=== PATIENT | female | born 1940 | race Caucasian/White ===

== ENCOUNTER 2022-11-30 19:47 | Inpatient (IN) | payer MEDICARE ==
[2022-11-30] VITALS (8 sets, daily range): BP systolic 131–155; BP diastolic 61–104
[~2022-11-30] VITALS: Ht 167.7 cm; Wt 80.7 kg
[2022-11-30] MEDS ORDERED: ONDANSETRON 4 MG (ZOFRAN) ORAL DISSOLVE TAB PO PRN (20:00)
[2022-11-30] MEDS ORDERED: ONDANSETRON 4 MG/2 ML (SDV) Z0FRAN IV PRN (20:00)
[2022-11-30] MEDS ORDERED: MILK OF MAGNESIA 400 MG/5 ML 30 ML UDC PO PRN (20:00)
[2022-11-30] MEDS ORDERED: diphenhydrAMINE 25 MG TAB (BENADRYL) PO PRN (20:00)
[2022-11-30] MEDS ORDERED: ACETAMINOPHEN 325 MG TABLET PO PRN (20:00)
[2022-11-30] MEDS ORDERED: polyethylene glycoL POWDER 17 GM (MIRALAX) PACK PO PRN (20:00)
[2022-11-30] MEDS ORDERED: diphenhydrAMINE 50 MG/ML INJ (BENADRYL) IVP PRN (20:00)
[2022-11-30] MEDS ORDERED: ANTACID SUSP 30 ML UDC (MYLANTA) PO PRN (20:00)
[2022-11-30] MEDS ORDERED: LACTULOSE SYRUP 10GM/15ML (ENULOSE) 30ML UDC PO PRN (20:00)
[2022-11-30] MEDS ORDERED: MELATONIN 3 MG TABLET PO PRN (20:00)
[2022-11-30] MEDS ORDERED: VANCOMYCIN INJECTION 0.1 MG in NS (IVPB) 250 ML IV SCH (20:00)
[2022-11-30] MEDS ORDERED: ALPRAZolam 1 MG (XANAX) TAB PO PRN (20:00)
[2022-11-30] MEDS ORDERED: BISACODYL 10 MG SUPP (DULCOLAX) PR PRN (20:00)
[2022-11-30] MEDS ORDERED: HYDROmorphone 2 MG/ML VIAL (DILAUDID) IV PRN (20:00)
[2022-11-30] MEDS ORDERED: meTOprolol 5 MG/5 ML (LOPRESSOR) VIAL IV PRN (20:00)
[2022-11-30] MEDS ORDERED: CALCIUM CARBONATE 500 MG (TUMS) TAB.CHEW PO PRN (20:00)
--- NOTE | 2022-11-30 20:17 | History & Physical ---
History of Present Illness HPI/Chief Complaint CC: Acute respiratory failure due to pneumonia and new onset AF with volume overload HPI: This is an 82yoWF clinic patient of Dr Batista who also sees Dr Thornton Cardiology in [place], Dr Ledesma Gastroenterology in [place], and Dr Bustamante Hematology in [place] and Dr Ortega Rheumatology who presents as a transfer from [facility] for higher level of care due to worsened respiratory status and new onset AF. ECHO prelim revealed EF 51%. Patient has scleroderma and is managed by Dr Ortega but is not on any immunusuppression only takes Ultram. She has a h/o watermelon stomach and has received multiple doses of IV iron and this hospital admit she received blood transfusions. She is currently on non- rebreather mask and appears to be comfortable but appears to be very complicated with temporal wasting. at bedside. Catheter is in place and patient maintained on Vanc and Zosyn since admit Wednesday night. Source: patient, family, RN/MD, old records Date Seen 11/30/22 Time Seen by a Provider: 21:30 Attending Physician PCP Admitting Physician: Vicky Angel DO Attending Physician: Vicky Angel DO Referring Physician Date of Admission Home Medications & Allergies Home Medications Reviewed patient Home Medication Reconciliation performed by pharmacy medication reconciliations building services technician and/or nursing. Patients Allergies have been reviewed. Allergies Allergies Coded Allergies No Known Drug Allergies (Unverified11/30/22) Past Tncnvub-Zgcmcy-Dmfrrw Hx Past Med/Social Hx: Reviewed Nursing Past Med/Soc Hx, Reviewed and Corrections made Patient Social History Marrital Status: Employed/Student: retired Alcohol Use: Denies Use Smoking Status: Never a Smoker Past Medical History Cardiac: Hypertension Gastrointestinal: Gastrointestinal Bleed Musculoskeletal: Arthritis, Chronic Back Pain scleroderma History of Blood Disorders: Yes (iron deficiency) Review of Systems Constitutional: see HPI, dizziness, malaise, weakness EENTM: no symptoms reported Respiratory: dyspnea on exertion, short of breath Cardiovascular: palpitations Gastrointestinal: no symptoms reported Genitourinary: no symptoms reported Musculoskeletal: back pain, joint pain Skin: no symptoms reported Psychiatric/Neurological: Anxiety, Depressed All Other Systems Reviewed Negative Unless Noted: Yes Physical Exam Physical Exam Vital Signs Vital Signs - First Documented 11/30/22 21:20 Temp 37.0 Pulse 87 Resp 23 B/P (MAP) 139/104 (116) Pulse Ox 94 O2 Delivery Nasal Cannula O2 Flow Rate 4.00 Capillary Refill : Height, Weight, BMI Height: '" Weight: lbs. oz. kg; BMI Method: General Appearance: WD/WN, Anxious, Chronically ill, Mild Distress, Thin, Other (chronically ill) Eyes: Bilateral Eye Normal Inspection, Bilateral Eye PERRL HEENT: PERRL/EOMI, Normal ENT Inspection, Pharynx Normal Neck: Full Range of Motion, Normal Inspection, Non Tender, Supple, Carotid Bruit Respiratory: Chest Non Tender, No Respiratory Distress, Accessory Muscle Use, Crackles, Decreased Breath Sounds Cardiovascular: No Edema, No Gallop, No JVD, No Murmur, Normal Peripheral Pulses, Irregularly Irregular, Tachycardia Gastrointestinal: Normal Bowel Sounds, No Organomegaly, No Pulsatile Mass, Non Tender, Soft Back: Normal Inspection, No CVA Tenderness, No Vertebral Tenderness Extremity: Normal Capillary Refill, Normal Inspection, Normal Range of Motion, Non Tender, No Calf Tenderness, No Pedal Edema Neurologic/Psychiatric: Alert, Oriented x3, Normal Mood/Affect, senior product development scientist II-XII Norm as Tested, Motor Weakness (generalized weakness) Skin: Normal Color, Warm/Dry Lymphatic: No Adenopathy Results Results/Procedures Labs Laboratory Tests 11/30/22 22:07 Patient resulted labs reviewed. Assessment/Plan Admission Diagnosis Assessment: Acute hypoxic respiratory failure- may need Vapotherm since on simple mask at [facility] Sepsis Bilateral PNA New onset AF somewhat rate controlled HTN as outpatient Watermelon stomach managed by Dr Ledesma on PPI and [place]af[place] Severe iron deficiency anemia managed by Dr Bustamante with iron infusions Scleroderma on Ultram for pain Not an anticoagulation candidate due to GIB Protein malnutrition Third spacing of fluid due to low albumin Pleural effusions Plan: CSD Dr Gabriel/Dr Longo consult ECHO reviewed from [facility] Not an anticoagulation candidate due to GIB Check iron and B12 Admission Status: Inpatient Order (span 2 midnights) Reason for Inpatient Admission: resp failure Clinical Quality Measures DVT/VTE Risk/Contraindication: Contraindications-Pharm: Other *list below* Other: watermelon stomach with GIB VICKY ANGEL DO Nov 30, 2022 20:17
--- OUTSIDE RECORDS SUMMARY | 2022-11-30 21:25 | XMS REPORT | Clinical Summary ---
Author Author [facility] Organization [facility] Address Unknown Phone Unavailable Care Team Providers Care Account Manager Name Role Phone Unverified, Unverified Md PCP Unavailable Melony Waller MD Unavailable Source Comments Some departments are not documenting in the electronic medical record. If you d o not see the information that you expected, contact Release of Information in [facility] [employer] Information Management department at [phone] for further assistan ce in locating additional records.[facility] Allergies No known active allergies Medications End Date Status Medication Sig Dispensed Refills Start Date Active metoprolol (LOPRESSOR) 50 Take 50 mg by 0 mg tablet mouth daily. Active meloxicam(+) (MOBIC) 15 Take 15 mg by 0 mg tablet mouth daily. Active CALCIUM PO Take by 0 mouth. Active cholecalciferol (Vitamin Take 1,000 0 D3) (VITAMIN D-3) 1,000 Units by unit Tab tablet mouth daily. Active Problems Problem Noted Date Thickened endometrium 01/28/2012 HTN (hypertension) 01/28/2012 Arthritis 01/28/2012 Overview: Of knees Bulging lumbar disc 01/28/2012 Kidney stones 01/28/2012 Osteopenia 01/28/2012 Urgency incontinence 01/28/2012 Social History Date Tobacco Use Types Packs/Day Years Used Smoking Tobacco: Never Assessed Sex Assigned at Date Recorded Not on file Last Filed Vital Signs Reading Time Taken Comments Vital Sign 145/71 01/28/2012 12:33 PM CDT Blood Pressure 58 01/28/2012 12:33 PM CDT Pulse 36.9 C (98.4 F) 01/28/2012 12:33 PM CDT Temperature - - Respiratory Rate - - Oxygen Saturation - - Inhaled Oxygen Concentration 105.1 kg (231 lb 9.6 oz) 01/28/2012 12:33 PM CDT Weight 166.4 cm (5' 5.5") 01/28/2012 12:33 PM CDT Height 37.95 01/28/2012 12:33 PM CDT Body Mass Index Plan of Treatment Health Maintenance Due Date Last Done Comments COVID-19 VACCINE (#1) 05/06/1941 DTAP/TDAP VACCINES (1 - 1960 Tdap) PHYSICAL (COMPREHENSIVE) 1960 EXAM SHINGLES RECOMBINANT 1992 VACCINE (1 of 2) OSTEOPOROSIS 2007 SCREENING/MONITORING PNEUMOCOCCAL VACCINE (1 - 2007 PCV) INFLUENZA VACCINE (#1) 2022 DEPRESSION SCREENING 10/04/2022 Results Not on filefrom Last 3 Months Care Teams Start Date End Date Account Manager Relationship Specialty 01/27/12 Unverified, Unverified, PCP - General 02/01/12 Melony Waller MD Obstetrics & [id number] Gynecology [facility] [address] [place] [address]
--- NOTE | 2022-11-30 21:49 | Diagnostic Imaging Report ---
EXAM: CHEST 1 VIEW, AP/PA ONLY INDICATION: Pneumonia. COMPARISON: None. FINDINGS: Cardiomegaly with diffuse interstitial prominence. Bibasilar consolidation. Small to moderate bilateral pleural effusions. No pneumothorax. Right IJ CVC tip is obscured by underpenetration. This is likely in the region of the RA/SVC junction. IMPRESSION: Cardiomegaly with diffuse interstitial and airspace opacities, greatest in the lung bases, suspicious for pulmonary edema. Infectious process cannot be excluded. Bilateral [id number] pleural effusions. Dictated by: Dictated on workstation # [id number]
[2022-11-30 22:29] LABS: BASOPHILS # (AUTO) 0.1 10^3/uL (0.0-0.1); BASOPHILS % (AUTO) 0 % (0-10); EOSINOPHILS # (AUTO) 0.1 10^3/uL (0.0-0.3); EOSINOPHILS % (AUTO) 0 % (0-10); HEMATOCRIT 27 % (35-52); HEMOGLOBIN 8.3 g/dL (11.5-16.0); LYMPHOCYTES # (AUTO) 1.2 10^3/uL (1.0-4.0); LYMPHOCYTES % (AUTO) 6 % (12-44); MEAN CORPUSCULAR HEMOGLOBIN 27 pg (25-34); MEAN CORPUSCULAR HGB CONC 31 g/dL (32-36); MEAN CORPUSCULAR VOLUME 86 fL (80-99); MEAN PLATELET VOLUME 10.1 fL (9.0-12.2); MONOCYTES # (AUTO) 0.9 10^3/uL (0.0-1.0); MONOCYTES % (AUTO) 4 % (0-12); NEUTROPHILS # (AUTO) 17.6 10^3/uL (1.8-7.8); NEUTROPHILS % (AUTO) 81 % (42-75); PLATELET COUNT 405 10^3/uL (130-400); WHITE BLOOD COUNT 21.7 10^3/uL (4.3-11.0)
[2022-11-30] MEDS ORDERED: RT-ALBUTEROL SULF 2.5 MG/3 ML PRE-MIX VIAL INH PRN (22:30)
[2022-11-30 22:41] LABS: ALBUMIN 2.4 GM/DL (3.2-4.5); POTASSIUM 3.7 MMOL/L (3.6-5.0)
[2022-11-30 22:43] LABS: TOTAL PROTEIN 6.2 GM/DL (6.4-8.2)
[2022-11-30 22:45] LABS: BILIRUBIN,TOTAL 0.4 MG/DL (0.1-1.0)
[2022-11-30 22:47] LABS: CREATININE SERUM 0.78 MG/DL (0.60-1.30)
[2022-11-30] MEDS: SENNOSIDES 8.6 MG (SENOKOT) TAB PO SCH (22:56)
[2022-11-30] MEDS: PANTOPRAZOLE 40 MG (PROTONIX) TAB PO SCH (22:57)
[2022-11-30] MEDS: DOCUSATE SODIUM 100 MG (COLACE) CAP PO SCH (22:57)
[2022-11-30] MEDS: GABAPENTIN 300 MG (NEURONTIN) CAP PO SCH (22:57)
[2022-11-30] MEDS: PIPERACILLIN SODIUM/TAZOBACTAM 4.5 GM in NS (IVPB) 100 ML IV SCH (22:57)
[2022-11-30] MEDS: SUCRALFATE 1 GM (CARAFATE) TAB PO SCH (22:57)
[2022-11-30 23:22] LABS: ABG BASE EXCESS 3.1 MMOL/L (-2.5-2.5); ABG OXYGEN SATURATION 89 % (94-100); ABG PCO2 46 MMHG (35-45); ABG PH 7.39 (7.37-7.43); ABG PO2 56 MMHG (79-93)
[2022-11-30 23:24] LABS: ALLENS TEST YES-POS; INSPIRED O2 4; PATIENT TEMP 37; VENTILATOR NO
[2022-12-01] VITALS: BP 134/63
[2022-12-01] MEDS: VANCOMYCIN 1 GM/NS 250 ML IVPB IV SCH ×4 (00:36→12:25)
[2022-12-01] MEDS: RT-ALBUTEROL SULF 2.5 MG/3 ML PRE-MIX VIAL INH SCH ×4 (02:32→21:33)
[2022-12-01 04:00] VITALS: BP 137/67
[2022-12-01 05:14] LABS: BASOPHILS # (AUTO) 0.1 10^3/uL (0.0-0.1); BASOPHILS % (AUTO) 0 % (0-10); EOSINOPHILS # (AUTO) 0.1 10^3/uL (0.0-0.3); EOSINOPHILS % (AUTO) 0 % (0-10); HEMATOCRIT 26 % (35-52); HEMOGLOBIN 8.2 g/dL (11.5-16.0); LYMPHOCYTES # (AUTO) 1.4 10^3/uL (1.0-4.0); LYMPHOCYTES % (AUTO) 7 % (12-44); MEAN CORPUSCULAR HEMOGLOBIN 27 pg (25-34); MEAN CORPUSCULAR HGB CONC 31 g/dL (32-36); MEAN CORPUSCULAR VOLUME 87 fL (80-99); MEAN PLATELET VOLUME 10.2 fL (9.0-12.2); MONOCYTES % (AUTO) 5 % (0-12); NEUTROPHILS # (AUTO) 15.5 10^3/uL (1.8-7.8); NEUTROPHILS % (AUTO) 78 % (42-75); PLATELET COUNT 387 10^3/uL (130-400); WHITE BLOOD COUNT 19.8 10^3/uL (4.3-11.0)
[2022-12-01 05:27] LABS: ALBUMIN 2.3 GM/DL (3.2-4.5); BILIRUBIN,TOTAL 0.5 MG/DL (0.1-1.0); CALCIUM 8.3 MG/DL (8.5-10.1); CREATININE SERUM 0.73 MG/DL (0.60-1.30); POTASSIUM 3.7 MMOL/L (3.6-5.0); TOTAL PROTEIN 6.1 GM/DL (6.4-8.2)
[2022-12-01] MEDS: CYANOCOBALAMIN 1,000 MCG (VITAMIN B-12) TABLET PO SCH (06:11)
[2022-12-01] MEDS: PIPERACILLIN SODIUM/TAZOBACTAM 4.5 GM in NS (IVPB) 100 ML IV SCH ×3 (06:11→22:50)
[2022-12-01] MEDS: SUCRALFATE 1 GM (CARAFATE) TAB PO SCH ×4 (06:11→21:00)
[2022-12-01 08:00] VITALS: BP 123/57
--- NOTE | 2022-12-01 08:34 | Consultation-Cardiology ---
HPI-Cardiology Cardiology Consultation: Date of Consultation 12/01/22 Time Seen by a Provider: 09:45 Date of Admission 11-30-22 Attending Physician Zoila Batista MD Admitting Physician Admitting Physician: Vicky Angel DO Attending Physician: Vicky Angel DO Consulting Physician Dewayne Gabriel MD HPI: Chief Complaint: Newly dx PAF Ms. Woodard is an 82 yr old female admitted to [facility] from the [facility] with new onset a-fib. While at [facility] she was started on a Cardizem gtt and Heparin. Her resp status continued to decline and she was subsequently transferred to [facility]. She reports she has had increasing weakness over the course of the last several days. She reports increasing SOB over the last several days as well. She denies any c/o CP, palpitations, syncope or near syncope. She reports dizziness with ambulation. She reports increasing LE swelling over the last several days. She reports freq cough with thick phlegm. She reports occ episodes of sharp, stabbing anterior chest pain that lasts for only seconds. She states her primary store receiving specialist is Dr. Tomlin at [facility]. She feels her SOB is somewhat better, but still SOB. She denies any n/v/d. She denies any fever or chills. Review of Systems-Cardiology Review of Systems Constitutional: As described under HPI Eyes: No vision change Ears/Nose/Throat: No epistaxis Respiratory: As described under HPI Cardiovascular: As described under HPI Gastrointestinal: As described under HPI Genitourinary: No dysuria, No hematuria Musculoskeletal: no symptoms reported Skin: No rash on exposed areas, No ulcerations on exposed areas Psychiatric/Neurological: No anxiety, No depression, No seizure, No focal weakness, No syncope Hematologic: No bleeding abnormalities All Other Systems Reviewed Negative Unless Noted: Yes JEX-Hgmjmt-Mfajgf Hx Patient Social History Marrital Status: Employed/Student: retired Smoking Status: Never a Smoker Have you traveled recently?: No Alcohol Use?: No Pt feels they are or have been: No Past Medical History PMH As described under Assessment. Family Medical History Family Medical History: She reports she had a brother who passed d/t CAD. Allergies and Home Medications Allergies Coded Allergies: No Known Drug Allergies (Unverified , 11/30/22) Patient Home Medication List Amlodipine Besylate (Amlodipine Besylate) 5 Mg Tablet, 5 MG PO DAILY, (Reported) Entered as Reported by: SLOANE MARTELL on 12/01/221005 Last Action: Reviewed Calcium Carbonate/Vitamin D3 (Calcium + Vitamin D Tablet) 600 Mg Calcium-5 Mcg (200 Unit) Tablet, 1 EACH PO DAILY, (Reported) Entered as Reported by: SLOANE MARTELL on 12/01/221005 Last Action: Reviewed Cyanocobalamin (Vitamin B-12) (Vitamin B-12) 500 Mcg Tablet, 500 MCG PO DAILY, (Reported) Entered as Reported by: SLOANE MARTELL on 12/01/221005 Last Action: Reviewed Fish Oil/Dha/Epa (Fish Oil 1,200 mg Fish Oil) 1,200 Mg-144 Mg-216 Mg Capsule, 1 EACH PO DAILY, (Reported) Entered as Reported by: SLOANE MARTELL on 12/01/221005 Last Action: Reviewed Folic Acid (Folic Acid) 1 Mg Tablet, 1 MG PO DAILY, (Reported) Entered as Reported by: SLOANE MARTELL on 12/01/221005 Last Action: Reviewed Gabapentin (Neurontin) 300 Mg Capsule, 300 MG PO HS, (Reported) Entered as Reported by: SLOANE MARTELL on 12/01/221005 Last Action: Reviewed Metoprolol Succinate (Metoprolol Succinate) 50 Mg Tab.er.24h, 50 MG PO DAILY, (Reported) Entered as Reported by: SLOANE MARTELL on 12/01/221005 Last Action: Reviewed Pantoprazole Sodium (Pantoprazole Sodium) 40 Mg Tablet.dr, 40 MG PO DAILY, (Reported) Entered as Reported by: SLOANE MARTELL on 12/01/221005 Last Action: Reviewed Sucralfate (Sucralfate) 1 Gram Tablet, 1 GM PO BIDAC, (Reported) Entered as Reported by: SLOANE MARTELL on 12/01/221005 Last Action: Reviewed Tramadol HCl (Tramadol HCl) 50 Mg Tablet, 50-100 MG PO Q6H PRN for PAIN-MODERATE (5-7), (Reported) Entered as Reported by: SLOANE MARTELL on 12/01/221005 Last Action: Reviewed Physical Exam-Cardiology Physical Exam Vital Signs/I&O 12/01/22 12/01/22 12/01/22 12/01/22 07:29 07:42 08:00 08:26 Pulse 77 105 141 Resp 19 B/P (MAP) 123/57 (79) Pulse Ox 96 95 O2 Delivery Nasal Cannula Nasal Cannula O2 Flow Rate 4.00 4.00 12/01/22 12/01/22 12/01/22 12/01/22 10:25 12:30 12:51 13:00 Pulse 113 113 93 105 Resp B/P (MAP) 160/66 (97) 166/87 (113) Pulse Ox 96 95 O2 Delivery Nasal Cannula Nasal Cannula O2 Flow Rate 4.00 4.00 12/01/22 12/01/22 12/01/22 12/01/22 13:15 13:30 13:45 14:00 Pulse 117 106 105 123 Resp 32 B/P (MAP) 165/78 (107) 135/71 (92) 153/72 (99) 146/62 (90) Pulse Ox 97 96 95 90 O2 Delivery Nasal Cannula Nasal Cannula Nasal Cannula Nasal Cannula O2 Flow Rate 4.00 4.00 4.00 4.00 12/01/22 12/01/22 14:38 15:00 Pulse 123 Resp 20 B/P (MAP) 158/89 (112) Pulse Ox 97 96 O2 Delivery Nasal Cannula Nasal Cannula O2 Flow Rate 4.00 4.00 12/01/22 00:00 Intake Total 0 ml Output Total 150 ml Balance -150 ml Capillary Refill : Less Than 3 Seconds Constitutional: AAO x 3, well-developed, well-nourished HEENT: PERRL, hearing is well preserved, oral hygience is good Neck: No carotid bruit; carotid pulses are 2 + bilaterally Respiratory: No accessory muscle use, No respiratory distress; chest expansion is symmetric, chest is bilaterally symmetric, other (dyspneic with conversation; coarse breath sounds) Cardiovascular: irregularly irregular; No JVD; S1 and S2 Gastrointestinal: No tender; soft; No guarding; audible bowel sounds Extremities: other (mod bilat LE swelling) Neurologic/Psychiatric: grossly intact (moves all extremities - gen weakness) Skin: No rash on exposed areas, No ulcerations on exposed areas Data Review Labs Laboratory Tests 11/30/22 22:07: White Blood Count 21.7H, Red Blood Count 3.12L, Hemoglobin 8.3L, Hematocrit 27L, Mean Corpuscular Volume 86, Mean Corpuscular Hemoglobin 27, Mean Corpuscular Hemoglobin Concent 31L, Red Cell Distribution Width 23.8H, Platelet Count 405H, Mean Platelet Volume 10.1, Immature Granulocyte % (Auto) 9, Neutrophils (%) (Auto) 81H, Lymphocytes (%) (Auto) 6L, Monocytes (%) (Auto) 4, Eosinophils (%) (Auto) 0, Basophils (%) (Auto) 0, Neutrophils # (Auto) 17.6H, Lymphocytes # (Auto) 1.2, Monocytes # (Auto) 0.9, Eosinophils # (Auto) 0.1, Basophils # (Auto) 0.1, Immature Granulocyte # (Auto) 1.9H, Sodium Level 137, Potassium Level 3.7, Chloride Level 103, Carbon Dioxide Level 23, Anion Gap 11, Blood Urea Nitrogen 22H, Creatinine 0.78, Estimat Glomerular Filtration Rate 77, BUN/Creatinine Ratio 28, Glucose Level 134H, Lactic Acid Level 0.91, Calcium Level 8.0L, Cor rected Calcium 9.3, Total Bilirubin 0.4, Aspartate Amino Transf (AST/SGOT) 32, Alanine Aminotransferase (ALT/SGPT) 32, Alkaline Phosphatase 82, Total Protein 6.2L, Albumin 2.4L 11/30/22 23:15: Blood Gas Puncture Site RT RADIAL, Blood Gas Patient Temperature 37, Arterial Blood pH 7.39, Arterial Blood Partial Pressure CO2 46H, Arterial Blood Partial Pressure O2 56L, Arterial Blood HCO3 28H, Arterial Blood Total CO2 29.0, Arterial Blood Oxygen Saturation 89L, Arterial Blood Base Excess 3.1H, Delfino Test YES-POS, Blood Gas Ventilator Setting NO, Blood Gas Inspired Oxygen 4 12/01/22 05:00: White Blood Count 19.8H, Red Blood Count 3.03L, Hemoglobin 8.2L, Hematocrit 26L, Mean Corpuscular Volume 87, Mean Corpuscular Hemoglobin 27, Mean Corpuscular Hemoglobin Concent 31L, Red Cell Distribution Width 23.9H, Platelet Count 387, Mean Platelet Volume 10.2, Immature Granulocyte % (Auto) 9, Neutrophils (%) (Auto) 78H, Lymphocytes (%) (Auto) 7L, Monocytes (%) (Auto) 5, Eosinophils (%) (Auto) 0, Basophils (%) (Auto) 0, Neutrophils # (Auto) 15.5H, Lymphocytes # (Auto) 1.4, Monocytes # (Auto) 1.0, Eosinophils # (Auto) 0.1, Basophils # (Auto) 0.1, Immature Granulocyte # (Auto) 1.8H, Sodium Level 140, Potassium Level 3.7, Chloride Level 106, Carbon Dioxide Level 24, Anion Gap 10, Blood Urea Nitrogen 18, Creatinine 0.73, Estimat Glomerular Filtration Rate 83, BUN/Creatinine Ratio 25, Glucose Level 116H, Calcium Level 8.3L, Corrected Calcium 9.7, Total Bilirubin 0.5, Aspartate Amino Transf (AST/SGOT) 28, Alanine Aminotransferase (ALT/SGPT) 29, Alkaline Phosphatase 74, Total Protein 6.1L, Albumin 2.3L 12/01/22 10:43: Blood Gas Puncture Site R RADIAL, Blood Gas Patient Temperature 37.0, Arterial Blood pH 7.40, Arterial Blood Partial Pressure CO2 46H, Arterial Blood Partial Pressure O2 84, Arterial Blood HCO3 28H, Arterial Blood Total CO2 29.0, Arterial Blood Oxygen Saturation 98, Arterial Blood Base Excess 3.2H, Delfino Test YES-POS, Blood Gas Ventilator Setting NO, Blood Gas Inspired Oxygen 4 Radiology NAME: HUEY WOODARD [facility] REC#: [id number] PT STATUS: ADM IN : 1940 PHYSICIAN: VICKY ANGEL DO ADMIT DATE: 11/30/22/[facility] Signed Date of Exam:11/30/22 CHEST 1 VIEW, AP/PA ONLY EXAM: CHEST 1 VIEW, AP/PA ONLY INDICATION: Pneumonia. COMPARISON: None. FINDINGS: Cardiomegaly with diffuse interstitial prominence. Bibasilar consolidation. Small to moderate bilateral pleural effusions. No pneumothorax. Right IJ CVC tip is obscured by underpenetration. This is likely in the region of the RA/SVC junction. IMPRESSION: Cardiomegaly with diffuse interstitial and airspace opacities, greatest in the lung bases, suspicious for pulmonary edema. Infectious process cannot be excluded. Bilateral [id number]-ai-[id number] pleural effusions. Dictated by: Dictated on workstation # [id number] Dict: [id number]/30/[id number] Trans: 11/30/22 [facility] [id number] Interpreted by: ALISON AGEE MD Electronically signed by: ALISON AGEE MD 11/30/22 [id number] A/P-Cardiology Assessment/Admission Diagnosis Newly dx PAF - first dx at [facility] ED on 11-30-22 Progressive dyspnea - likely d/t prob pneumonia and new onset CHF Pneumonia - management per medical services CHF HTN HLD H/O GIB - GAVES syndrome - follows with Dr Ledesma of GI services in [place], [place] - cauterization approx 1 yr ago and again in June 2022 H/O scleroderma - follows with rheumatology in [place], [place] Discussion and Recomendations Newly dx PAF on 11-30-22 at [facility] - rate controlled when in [place] - when she converts to a-fib HR is not well controlled - start Cardizem for rate control Complex management issue - we advise full OAC for stroke prophylaxis, however she has a h/o recurrent GIB's; we will leave the decision to Dr. Angel who is the hospitalist providing her care New onset CHF - echocardiogram to eval structure and function - treat with diuretics Management of pneumonia per medical services Monitor lab closely Further recs will be based on her hospital course We would like to thank medical services for this consult Clinical Quality Measures DVT/VTE Risk/Contraindication: Contraindications-Pharm: Other *list below* Other: watermelon stomach with GIB DENIZ ENGLAND Dec 01, 2022 08:34
[2022-12-01] MEDS: DOCUSATE SODIUM 100 MG (COLACE) CAP PO SCH ×2 (08:46→20:19)
[2022-12-01] MEDS: PANTOPRAZOLE 40 MG (PROTONIX) TAB PO SCH ×2 (08:46→21:00)
[2022-12-01] MEDS: FOLIC ACID 1 MG TAB PO SCH (08:46)
[2022-12-01] MEDS: SENNOSIDES 8.6 MG (SENOKOT) TAB PO SCH ×2 (08:46→20:20)
[2022-12-01] MEDS ORDERED: APIXABAN 5 MG (ELIQUIS) TABLET PO NR (10:00)
[2022-12-01] MEDS ORDERED: LACTULOSE SYRUP 10GM/15ML (ENULOSE) 30ML UDC PO NR (10:00)
[2022-12-01] MEDS ORDERED: SENNA W/DOCUSATE (SENOKOT S) TABLET PO NR (10:00)
[2022-12-01] MEDS ORDERED: TRAM50TA3 PO (10:06)
[2022-12-01] MEDS ORDERED: SUCR1TAB PO (10:06)
[2022-12-01] MEDS ORDERED: FOLI1TAB33 PO (10:06)
[2022-12-01] MEDS ORDERED: FISH1CAP15 PO (10:06)
[2022-12-01] MEDS ORDERED: METO50TA7 PO (10:06)
[2022-12-01] MEDS ORDERED: AMLO-250 PO (10:06)
[2022-12-01] MEDS ORDERED: CYAN500T8 PO (10:06)
[2022-12-01] MEDS ORDERED: GABA300C PO (10:06)
[2022-12-01] MEDS ORDERED: CALC-140 PO (10:06)
[2022-12-01] MEDS ORDERED: PANT40TA52 PO (10:06)
--- NOTE | 2022-12-01 10:25 | Progress Note ---
MIKKI LAN 12/01/22 1025: Subjective Date Seen by a Provider: Dec 01, 2022 Time Seen by a Provider: 09:00 Subjective/Events-last exam Patient seen at bedside this morning. She reports improved work of breathing overnight and this morning. She reports she ate and drank very little since arrival. She has had no BMs since Wednesday. She reports no pain/discomfort. Focused Exam Lactate Level 11/30/22 22:07: Lactic Acid Level 0.91 Objective Exam Last Set of Vital Signs Vital Signs Date Time Temp Pulse Resp B/P (MAP) Pulse Ox O2 Delivery O2 Flow Rate FiO2 12/01/22 08:26 141 12/01/22 08:00 19 123/57 (79) 95 Nasal Cannula 4.00 12/01/22 03:57 37.0 Capillary Refill : Less Than 3 Seconds I&O Intake and Output 12/01/22 00:00 Intake Total 0 ml Output Total 150 ml Balance -150 ml Intake Oral 0 ml Output Urine Total 150 ml Daily Weight Change No General: Alert, Oriented X3, No Acute Distress HEENT: Atraumatic, PERRLA Heart: No Murmurs Abdomen: Other (Tachycardic, irregularly irregular rhythm ) Extremities: No Edema, Normal Pulses Skin: No Significant Lesion Neuro: Normal Speech Psych/Mental Status: Mental Status NL, Mood NL Results Lab Laboratory Tests 11/30/22 22:07: White Blood Count 21.7H, Red Blood Count 3.12L, Hemoglobin 8.3L, Hematocrit 27L, Mean Corpuscular Volume 86, Mean Corpuscular Hemoglobin 27, Mean Corpuscular Hemoglobin Concent 31L, Red Cell Distribution Width 23.8H, Platelet Count 405H, Mean Platelet Volume 10.1, Immature Granulocyte % (Auto) 9, Neutrophils (%) (Auto) 81H, Lymphocytes (%) (Auto) 6L, Monocytes (%) (Auto) 4, Eosinophils (%) (Auto) 0, Basophils (%) (Auto) 0, Neutrophils # (Auto) 17.6H, Lymphocytes # (Auto) 1.2, Monocytes # (Auto) 0.9, Eosinophils # (Auto) 0.1, Basophils # (Auto) 0.1, Immature Granulocyte # (Auto) 1.9H, Sodium Level 137, Potassium Level 3.7, Chloride Level 103, Carbon Dioxide Level 23, Anion Gap 11, Blood Urea Nitrogen 22H, Creatinine 0.78, Estimat Glomerular Filtration Rate 77, BUN/Creatinine Ratio 28, Glucose Level 134H, Lactic Acid Level 0.91, Calcium Level 8.0L, Corrected Calcium 9.3, Total Bilirubin 0.4, Aspartate Amino Transf (AST/SGOT) 32, Alanine Aminotransferase (ALT/SGPT) 32, Alkaline Phosphatase 82, Total Protein 6.2L, Albumin 2.4L 11/30/22 23:15: Blood Gas Puncture Site RT RADIAL, Blood Gas Patient Temperature 37, Arterial Blood pH 7.39, Arterial Blood Partial Pressure CO2 46H, Arterial Blood Partial Pressure O2 56L, Arterial Blood HCO3 28H, Arterial Blood Total CO2 29.0, Arterial Blood Oxygen Saturation 89L, Arterial Blood Base Excess 3.1H, Delfino Test YES-POS, Blood Gas Ventilator Setting NO, Blood Gas Inspired Oxygen 4 12/01/22 05:00: White Blood Count 19.8H, Red Blood Count 3.03L, Hemoglobin 8.2L, Hematocrit 26L, Mean Corpuscular Volume 87, Mean Corpuscular Hemoglobin 27, Mean Corpuscular Hemoglobin Concent 31L, Red Cell Distribution Width 23.9H, Platelet Count 387, Mean Platelet Volume 10.2, Immature Granulocyte % (Auto) 9, Neutrophils (%) (Auto) 78H, Lymphocytes (%) (Auto) 7L, Monocytes (%) (Auto) 5, Eosinophils (%) (Auto) 0, Basophils (%) (Auto) 0, Neutrophils # (Auto) 15.5H, Lymphocytes # (Auto) 1.4, Monocytes # (Auto) 1.0, Eosinophils # (Auto) 0.1, Basophils # (Auto) 0.1, Immature Granulocyte # (Auto) 1.8H, Sodium Level 140, Potassium Level 3.7, Chloride Level 106, Carbon Dioxide Level 24, Anion Gap 10, Blood Urea Nitrogen 18, Creatinine 0.73, Estimat Glomerular Filtration Rate 83, BUN/Creatinine Ratio 25, Glucose Level 116H, Calcium Level 8.3L, Corrected Calcium 9.7, Total Bilirubin 0.5, Aspartate Amino Transf (AST/SGOT) 28, Alanine Aminotransferase (ALT/SGPT) 29, Alkaline Phosphatase 74, Total Protein 6.1L, Albumin 2.3L Radiology NAME: HUEY WOODARD [facility] REC#: [id number] PT STATUS: ADM IN : 1940 PHYSICIAN: VICKY ANGEL DO ADMIT DATE: 11/30/22/[facility] Signed Date of Exam:11/30/22 CHEST 1 VIEW, AP/PA ONLY EXAM: CHEST 1 VIEW, AP/PA ONLY INDICATION: Pneumonia. COMPARISON: None. FINDINGS: Cardiomegaly with diffuse interstitial prominence. Bibasilar consolidation. Small to moderate bilateral pleural effusions. No pneumothorax. Right IJ CVC tip is obscured by underpenetration. This is likely in the region of the RA/SVC junction. IMPRESSION: Cardiomegaly with diffuse interstitial and airspace opacities, greatest in the lung bases, suspicious for pulmonary edema. Infectious process cannot be excluded. Bilateral [id number] pleural effusions. 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 - On Vancomycin q12 hr and Zosyn q8hr; Vancomycin trough with pharmacy - CXR on 11/30 with bilateral infiltrates, edema, and small pleural effusions; repeat appears marginally improved (final read pending) - Incentive spirometry at bedside; Albuterol PRN - WBC 21.7 -> 19.8 (12/01) - ABG on admission 7.39/46/56/28 - Vital signs stable 2) New onset A-Fib with intermittent RVR - Consult to Cardiology, appreciate recommendations (pending) - Metoprolol q4hr for HR >100; one dose needed this AM. - Previous echo with EF of 51% - Vital signs stable. 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 3) FEN/GI - No fluids at this time - Will initiate ICU electrolyte protocol - Regular Diet; encouraged intake - Senna/docusate/lactulose/PEG for bowel regimen, Zofran PRN, Protonix and sucralfate - Urine output 0.16 ml/kg/hr (patel in place) Clinical Quality Measures DVT/VTE Risk/Contraindication: Contraindications-Pharm: Other *list below* Other: watermelon stomach with GIB VICKY ANGEL DO 12/02/22 0438: Subjective Subjective/Events-last exam Moving to ICU AF RVR may need Cardizem drip Cardiology consulted Objective Exam General: Alert, Oriented X3, Cooperative, No Acute Distress, Other (frail) Lungs: Other (crackles) Heart: Regular Rate Psych/Mental Status: Mental Status NL Assessment/Plan Assessment/Plan Assess & Plan/Chief Complaint Not an anticoagulation candidate due to watermelon stomach and recent transfusions required along with iron infusions since risk of bleeding outweighs CVA prophylaxis Supervisory-Addendum Brief Verification & Attestation Participated in pt care: history, MDM, physical Personally performed: exam, history, MDM, supervision of care Care discussed with: Medical Student Procedures: n/a Results interpretation: Verified all documentation Verification and Attestation of Medical Student E/M Service A medical student performed and documented this service in my presence. I reviewed and verified all information documented by the medical student and made modifications to such information, when appropriate. I personally performed the physical exam and medical decision making. Vicky Angel Dec 02, 2022,04:36 MIKKI LAN Dec 01, 2022 10:25 VICKY ANGEL DO Dec 02, 2022 04:38
[2022-12-01] MEDS ORDERED: NS IV 500 ML 500 ML IV PRN ×2 (10:30)
[2022-12-01 10:51] LABS: ABG BASE EXCESS 3.2 MMOL/L (-2.5-2.5); ABG OXYGEN SATURATION 98 % (94-100); ABG PCO2 46 MMHG (35-45); ABG PO2 84 MMHG (79-93)
[2022-12-01 10:53] LABS: ALLENS TEST YES-POS; INSPIRED O2 4; VENTILATOR NO
--- NOTE | 2022-12-01 10:54 | Diagnostic Imaging Report ---
INDICATION: CHF. Frontal chest obtained at 9:16 a.m. and compared to yesterday. Cardiomegaly is again noted. There is unchanged central vascular congestion with interstitial edema and bibasilar infiltrates. The right IJ catheter is unchanged. IMPRESSION: Unchanged cardiomegaly with central vascular congestion and edema and unchanged bilateral infiltrates. Dictated by: Dictated on workstation # [id number]
[2022-12-01] MEDS ORDERED: FUROSEMIDE 40 MG/4 ML INJ (LASIX) IVP NR (11:00)
--- NOTE | 2022-12-01 13:42 | Consultation-Cardiology ---
HPI-Cardiology Cardiology Consultation: Date of Consultation 12/01/22 Time Seen by a Provider: 11:00 Date of Admission Attending Physician Zoila Batista MD Admitting Physician Admitting Physician: Vicky Cesar DO Attending Physician: Vicky Cesar DO Consulting Physician MANJU CAMPO MD, MA, FACP, FACC, [facility], CCDS Physician requesting consult: Dr Cesar HPI: Chief Complaint: Reason for Card consult: Newly dx PAF Ms. Desouza is an 82 yr old female admitted to [facility] from the [facility] ED with new onset a-fib. While at [facility] she was started on a Cardizem gtt and Heparin. Her resp st atus continued to decline and she was subsequently transferred to [facility]. She reports she has had increasing weakness over the course of the last several days. She reports increasing SOB over the last several days as well. She denies any c/o CP, palpitations, syncope or near syncope. She reports dizziness with ambulation. She reports increasing LE swelling over the last several days. She reports freq cough with thick phlegm. She reports occ episodes of sharp, stabbing anterior chest pain that lasts for only seconds. She states her primary bell hole digger is Dr. Tomlin at [facility]. She feels her SOB is somewhat better, but still SOB. She denies any n/v/d. She denies any fever or chills. Review of Systems-Cardiology Review of Systems Constitutional: As described under HPI Eyes: No vision change Ears/Nose/Throat: No epistaxis Respiratory: As described under HPI Cardiovascular: As described under HPI Gastrointestinal: As described under HPI Genitourinary: No dysuria, No hematuria Musculoskeletal: no symptoms reported Skin: No rash on exposed areas, No ulcerations on exposed areas Psychiatric/Neurological: No anxiety, No depression, No seizure, No focal weakness, No syncope Hematologic: No bleeding abnormalities All Other Systems Reviewed Negative Unless Noted: Yes [id number] Hx Patient Social History Marrital Status: Employed/Student: retired Smoking Status: Never a Smoker Have you traveled recently?: No Alcohol Use?: No Pt feels they are or have been: No Past Medical History PMH As described under Assessment. Family Medical History Family Medical History: She reports she had a brother who passed d/t CAD. Allergies and Home Medications Allergies Coded Allergies: No Known Drug Allergies (Unverified , 11/30/22) Patient Home Medication List Home Medication List Reviewed: Yes Amlodipine Besylate (Amlodipine Besylate) 5 Mg Tablet, 5 MG PO DAILY, (Reported) Entered as Reported by: SLOANE MARTELL on 12/01/221005 Last Action: Reviewed Calcium Carbonate/Vitamin D3 (Calcium + Vitamin D Tablet) 600 Mg Calcium-5 Mcg (200 Unit) Tablet, 1 EACH PO DAILY, (Reported) Entered as Reported by: SLOANE MARTELL on 12/01/221005 Last Action: Reviewed Cyanocobalamin (Vitamin B-12) (Vitamin B-12) 500 Mcg Tablet, 500 MCG PO DAILY, (Reported) Entered as Reported by: SLOANE MARTELL on 12/01/221005 Last Action: Reviewed Fish Oil/Dha/Epa (Fish Oil 1,200 mg Fish Oil) 1,200 Mg-144 Mg-216 Mg Capsule, 1 EACH PO DAILY, (Reported) Entered as Reported by: SLOANE MARTELL on 12/01/221005 Last Action: Reviewed Folic Acid (Folic Acid) 1 Mg Tablet, 1 MG PO DAILY, (Reported) Entered as Reported by: SLOANE MARTELL on 12/01/221005 Last Action: Reviewed Gabapentin (Neurontin) 300 Mg Capsule, 300 MG PO HS, (Reported) Entered as Reported by: SLOANE MARTELL on 12/01/221005 Last Action: Reviewed Metoprolol Succinate (Metoprolol Succinate) 50 Mg Tab.er.24h, 50 MG PO DAILY, (Reported) Entered as Reported by: SLOANE MARTELL on 12/01/221005 Last Action: Reviewed Pantoprazole Sodium (Pantoprazole Sodium) 40 Mg Tablet.dr, 40 MG PO DAILY, (Reported) Entered as Reported by: SLOANE MARTELL on 12/01/221005 Last Action: Reviewed Sucralfate (Sucralfate) 1 Gram Tablet, 1 GM PO BIDAC, (Reported) Entered as Reported by: SLOANE MARTELL on 12/01/221005 Last Action: Reviewed Tramadol HCl (Tramadol HCl) 50 Mg Tablet, 50-100 MG PO Q6H PRN for PAIN-MODERATE (5-7), (Reported) Entered as Reported by: SLOANE MARTELL on 12/01/221005 Last Action: Reviewed Physical Exam-Cardiology Physical Exam Vital Signs/I&O 12/01/22 12/01/22 12/01/22 12/01/22 02:33 03:57 04:00 07:29 Temp 37.0 Pulse 86 77 Resp 25 B/P (MAP) 137/67 (90) Pulse Ox 96 96 O2 Delivery Nasal Cannula Nasal Cannula Nasal Cannula O2 Flow Rate 4.00 4.00 4.00 12/01/22 12/01/22 12/01/22 12/01/22 07:42 08:00 08:26 10:25 Pulse 105 141 113 Resp 19 B/P (MAP) 123/57 (79) Pulse Ox 96 95 O2 Delivery Nasal Cannula Nasal Cannula O2 Flow Rate 4.00 4.00 12/01/22 12/01/22 12:30 12:51 Pulse 113 93 Resp 23 B/P (MAP) 160/66 (97) Pulse Ox 96 O2 Delivery Nasal Cannula O2 Flow Rate 4.00 12/01/22 00:00 Intake Total 0 ml Output Total 150 ml Balance -150 ml Capillary Refill : Less Than 3 Seconds Constitutional: AAO x 3, well-developed, well-nourished HEENT: PERRL, hearing is well preserved, oral hygience is good Neck: No carotid bruit; carotid pulses are 2 + bilaterally Respiratory: No accessory muscle use, No respiratory distress; chest expansion is symmetric, chest is bilaterally symmetric, other (dyspneic with conversation; coarse breath sounds) Cardiovascular: irregularly irregular; No JVD; S1 and S2 Gastrointestinal: No tender; soft; No guarding; audible bowel sounds Extremities: other (mod bilat LE swelling) Neurologic/Psychiatric: grossly intact (moves all extremities - gen weakness) Skin: No rash on exposed areas, No ulcerations on exposed areas Data Review Labs Laboratory Tests 11/30/22 22:07: White Blood Count 21.7H, Red Blood Count 3.12L, Hemoglobin 8.3L, Hematocrit 27L, Mean Corpuscular Volume 86, Mean Corpuscular Hemoglobin 27, Mean Corpuscular Hemoglobin Concent 31L, Red Cell Distribution Width 23.8H, Platelet Count 405H, Mean Platelet Volume 10.1, Immature Granulocyte % (Auto) 9, Neutrophils (%) (Auto) 81H, Lymphocytes (%) (Auto) 6L, Monocytes (%) (Auto) 4, Eosinophils (%) (Auto) 0, Basophils (%) (Auto) 0, Neutrophils # (Auto) 17.6H, Lymphocytes # (Auto) 1.2, Monocytes # (Auto) 0.9, Eosinophils # (Auto) 0.1, Basophils # (Auto) 0.1, Immature Granulocyte # (Auto) 1.9H, Sodium Level 137, Potassium Level 3.7, Chloride Level 103, Carbon Dioxide Level 23, Anion Gap 11, Blood Urea Nitrogen 22H, Creatinine 0.78, Estimat Glomerular Filtration Rate 77, BUN/Creatinine Ratio 28, Glucose Level 134H, Lactic Acid Level 0.91, Calcium Level 8.0L, Corrected Calcium 9.3, Total Bilirubin 0.4, Aspartate Amino Transf (AST/SGOT) 32, Alanine Aminotransferase (ALT/SGPT) 32, Alkaline Phosphatase 82, Total Protein 6.2L, Albumin 2.4L 11/30/22 23:15: Blood Gas Puncture Site RT RADIAL, Blood Gas Patient Temperature 37, Arterial Blood pH 7.39, Arterial Blood Partial Pressure CO2 46H, Arterial Blood Partial Pressure O2 56L, Arterial Blood HCO3 28H, Arterial Blood Total CO2 29.0, Arterial Blood Oxygen Saturation 89L, Arterial Blood Base Excess 3.1H, Delfino Test YES-POS, Blood Gas Ventilator Setting NO, Blood Gas Inspired Oxygen 4 12/01/22 05:00: White Blood Count 19.8H, Red Blood Count 3.03L, Hemoglobin 8.2L, Hematocrit 26L, Mean Corpuscular Volume 87, Mean Corpuscular Hemoglobin 27, Mean Corpuscular Hemoglobin Concent 31L, Red Cell Distribution Width 23.9H, Platelet Count 387, Mean Platelet Volume 10.2, Immature Granulocyte % (Auto) 9, Neutrophils (%) (Auto) 78H, Lymphocytes (%) (Auto) 7L, Monocytes (%) (Auto) 5, Eosinophils (%) ( Auto) 0, Basophils (%) (Auto) 0, Neutrophils # (Auto) 15.5H, Lymphocytes # (Auto) 1.4, Monocytes # (Auto) 1.0, Eosinophils # (Auto) 0.1, Basophils # (Auto) 0.1, Immature Granulocyte # (Auto) 1.8H, Sodium Level 140, Potassium Level 3.7, Chloride Level 106, Carbon Dioxide Level 24, Anion Gap 10, Blood Urea Nitrogen 18, Creatinine 0.73, Estimat Glomerular Filtration Rate 83, BUN/Creatinine Ratio 25, Glucose Level 116H, Calcium Level 8.3L, Corrected Calcium 9.7, Total Bilirubin 0.5, Aspartate Amino Transf (AST/SGOT) 28, Alanine Aminotransferase (ALT/SGPT) 29, Alkaline Phosphatase 74, Total Protein 6.1L, Albumin 2.3L 12/01/22 10:43: Blood Gas Puncture Site R RADIAL, Blood Gas Patient Temperature 37.0, Arterial Blood pH 7.40, Arterial Blood Partial Pressure CO2 46H, Arterial Blood Partial Pressure O2 84, Arterial Blood HCO3 28H, Arterial Blood Total CO2 29.0, Arterial Blood Oxygen Saturation 98, Arterial Blood Base Excess 3.2H, Delfino Test YES-POS, Blood Gas Ventilator Setting NO, Blood Gas Inspired Oxygen 4 A/P-Cardiology Assessment/Admission Diagnosis Newly dx PAF - first dx at [facility] ED on 11-30-22 Progressive dyspnea - likely d/t prob pneumonia and new onset CHF Pneumonia - management per medical services CHF HTN HLD 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 Cesar who is the hospitalist providing her care New onset CHF - echocardiogram to eval structure and function - treat with diuretics Management of pneumonia per medical services Monitor lab closely Further recs will be based on her hospital course We would like to thank Medical services for this consult Clinical Quality Measures DVT/VTE Risk/Contraindication: Contraindications-Pharm: Other *list below* Other: watermelon stomach with MANJU CHU MD FACP FAC CCDS Dec 01, 2022 13:42
--- NOTE | 2022-12-01 14:20 | Tele-ICU Consult ---
History of Present Illness History of Present Illness Date Seen by Provider: Dec 01, 2022 Time Seen by Provider: 14:20 Date of Admission (Tele-ICU Physician , consultation as per request of PCP Service provided via interactive audio and video telecommunications E-CARE system to a patient admitted to ICU bed in [facility]. Available chart/ vitals / labs / Images reviewed H&P is from ER notes Patient's information available about PMH, Shx, Fhx allergy reviewed inEMR. ROS as per chart and RN report Now in ICU, hemodynamically stable Video assessment done using teleICU camera, rest of exam as per RN Discussed with RN. Hospital course: (12/01) 82yF admitted from [facility] for higher level of care, New Afib, worsening repiratory status, bilateral PNA A/P Acute hypoxic resp failure due to PNA and pulm edema ( ? 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 Right IJ , (Central Line Necessity Reviewed) Quevedo: + 11/30 OG: Nutrition: po Analgesia: Anxiety/ delirium VTE Prophylaxis: scd Stress Ulcer Prophylaxis: ppi Plans in collaboration with bedside consultants and IM MDs. Discussed with RN to reach out if any questions or concerns A total of 31 minutes of critical care time was devoted to this patient today, required to treat and/or prevent further deterioration of critical care condition ( as above ) . I am remotely monitoring this patient from another state. I am unable to do the bedside exam, and history/physical and pertinent information is taken from other notes in the computer and bedside staff. . Allergies and Home Medications Allergies Coded Allergies: No Known Drug Allergies (Unverified , 11/30/22) Home Medications Amlodipine Besylate 5 Mg Tablet, 5 MG PO DAILY, (Reported) Calcium Carbonate/Vitamin D3 600 Mg Calcium-5 Mcg (200 Unit) Tablet, 1 EACH PO DAILY, (Reported) Cyanocobalamin (Vitamin B-12) 500 Mcg Tablet, 500 MCG PO DAILY, (Reported) Fish Oil/Dha/Epa 1,200 Mg-144 Mg-216 Mg Capsule, 1 EACH PO DAILY, (Reported) Folic Acid 1 Mg Tablet, 1 MG PO DAILY, (Reported) Gabapentin 300 Mg Capsule, 300 MG PO HS, (Reported) Metoprolol Succinate 50 Mg Tab.er.24h, 50 MG PO DAILY, (Reported) Pantoprazole Sodium 40 Mg Tablet.dr, 40 MG PO DAILY, (Reported) Sucralfate 1 Gram Tablet, 1 GM PO BIDAC, (Reported) Tramadol HCl 50 Mg Tablet, 50-100 MG PO Q6H PRN for PAIN-MODERATE (5-7), (Reported) TAKES 1 TO 2 (50MG) TABS Past Medical/Social/Family Hx Patient Social History Marrital Status: Employed/Student: retired Tobacco Use?: No Smoking Status: Never a Smoker Smokeless Tobacco Frequency: Never a User Use of E-Cig and/or Vaping dev: No Substance use?: No Alcohol Use?: No Pt stated abuse/neglect: No Immunizations Up To Date Influenza Vaccine Up-to-Date: No; Not Current Current Status status: No status: No Advance Directives: No Communicates: Verbally Primary Language: Swedish Preferred Spoken Language: Swedish Is interpretation needed?: No Sensory deficits: Vision impairment Implanted or Applied Medical D: None Review of Systems Constitutional: see HPI Focused Exam Lactate Level 11/30/22 22:07: Lactic Acid Level 0.91 Height, Weight, BMI Height: '" Weight: lbs. oz. kg; 30.86 BMI Method: Exam Exam Patient acknowledged, consented, and participated in this virtual visit which was conducted using real time audio/video Vital Signs Date Time Temp Pulse Resp B/P (MAP) Pulse Ox O2 Delivery O2 Flow Rate FiO2 12/01/22 14:00 123 23 146/62 (90) 90 Nasal Cannula 4.00 12/01/22 13:45 105 23 153/72 (99) 95 Nasal Cannula 4.00 12/01/22 13:30 106 19 135/71 (92) 96 Nasal Cannula 4.00 12/01/22 13:15 117 32 165/78 (107) 97 Nasal Cannula 4.00 12/01/22 13:00 105 22 166/87 (113) 95 Nasal Cannula 4.00 12/01/22 12:51 93 12/01/22 12:30 113 23 160/66 (97) 96 Nasal Cannula 4.00 12/01/22 10:25 113 12/01/22 08:26 141 12/01/22 08:00 105 19 123/57 (79) 95 Nasal Cannula 4.00 12/01/22 07:42 96 Nasal Cannula 4.00 12/01/22 07:29 77 12/01/22 04:00 86 25 137/67 (90) 96 Nasal Cannula 4.00 12/01/22 03:57 37.0 Nasal Cannula 4.00 12/01/22 02:33 96 Nasal Cannula 4.00 12/01/22 01:00 74 12/01/22 00:00 84 17 134/63 (93) 97 Nasal Cannula 4.00 11/30/22 23:58 37.2 Nasal Cannula 4.00 11/30/22 23:15 76 15 155/65 (103) 97 Nasal Cannula 4.00 11/30/22 23:00 78 18 143/70 (103) 96 Nasal Cannula 4.00 11/30/22 22:45 85 19 143/64 (98) 97 Nasal Cannula 4.00 11/30/22 22:30 74 18 141/67 (91) 98 Nasal Cannula 4.00 11/30/22 22:27 94 Nasal Cannula 4.00 11/30/22 22:15 75 21 141/68 (91) 97 Nasal Cannula 4.00 11/30/22 22:10 36.8 108 94 11/30/22 22:05 84 22 131/61 (86) 98 Nasal Cannula 4.00 11/30/22 21:38 105 11/30/22 21:34 76 11/30/22 21:30 96 Nasal Cannula 4.00 11/30/22 21:24 113 23 139/104 (110) 95 Nasal Cannula 4.00 11/30/22 21:24 108 11/30/22 21:20 37.0 87 23 139/104 (116) 94 Nasal Cannula 4.00 I & O 12/01/22 07:00 Intake Total 120 ml Output Total 475 ml Balance -355 ml Height & Weight Height: '" Weight: lbs. oz. kg; 30.86 BMI Method: General Appearance: No Apparent Distress, WD/WN, Anxious, Chronically ill, Mild Distress, Thin, Other (chronically ill) HEENT: PERRL/EOMI, Normal ENT Inspection, Pharynx Normal Neck: Full Range of Motion, Normal Inspection, Non Tender, Supple, Carotid Bruit Respiratory: Chest Non Tender, No Respiratory Distress, Accessory Muscle Use, Crackles, Decreased Breath Sounds Cardiovascular: No Edema, No Gallop, No JVD, No Murmur, Normal Peripheral Pulses, Irregularly Irregular, Tachycardia Capillary Refill: Less Than 3 Seconds Extremity: Normal Capillary Refill, Normal Inspection, Normal Range of Motion, Non Tender, No Calf Tenderness, No Pedal Edema Neurologic/Psychiatric: Alert, Oriented x3, Normal Mood/Affect, grievance coordinator II-XII Norm as Tested, Motor Weakness (generalized weakness) Skin: Normal Color, Warm/Dry Lymphatic: No Adenopathy Results Lab Laboratory Tests 11/30/22 22:07 12/01/22 05:00 Assessment/Plan Assessment/Plan 1 JACQUES GANDARA MD Dec 01, 2022 14:20
[2022-12-01] MEDS: LACTULOSE SYRUP 10GM/15ML (ENULOSE) 30ML UDC PO SCH (20:19)
[2022-12-01] MEDS: SENNA W/DOCUSATE (SENOKOT S) TABLET PO SCH (20:20)
[2022-12-01] MEDS: GABAPENTIN 300 MG (NEURONTIN) CAP PO SCH (21:00)
[2022-12-01] MEDS ORDERED: APIXABAN 5 MG (ELIQUIS) TABLET PO SCH (21:00)
[2022-12-01] MEDS ORDERED: dilTIAZem DRIP PRE-MIX 125 ML IV SCH (23:30)
[2022-12-01] MEDS ORDERED: dilTIAZem DRIP PRE-MIX 125 ML IV ONE (23:34)
[2022-12-02] MEDS: VANCOMYCIN 1 GM/NS 250 ML IVPB IV SCH ×2 (00:04)
[2022-12-02] MEDS: RT-ALBUTEROL SULF 2.5 MG/3 ML PRE-MIX VIAL INH SCH ×4 (03:42→21:48)
[2022-12-02 03:50] LABS: BASOPHILS # (AUTO) 0.1 10^3/uL (0.0-0.1); BASOPHILS % (AUTO) 0 % (0-10); EOSINOPHILS # (AUTO) 0.1 10^3/uL (0.0-0.3); EOSINOPHILS % (AUTO) 1 % (0-10); HEMATOCRIT 27 % (35-52); LYMPHOCYTES # (AUTO) 1.4 10^3/uL (1.0-4.0); LYMPHOCYTES % (AUTO) 8 % (12-44); MEAN CORPUSCULAR HEMOGLOBIN 26 pg (25-34); MEAN CORPUSCULAR HGB CONC 30 g/dL (32-36); MEAN CORPUSCULAR VOLUME 87 fL (80-99); MEAN PLATELET VOLUME 9.8 fL (9.0-12.2); MONOCYTES # (AUTO) 0.8 10^3/uL (0.0-1.0); MONOCYTES % (AUTO) 5 % (0-12); NEUTROPHILS # (AUTO) 13.5 10^3/uL (1.8-7.8); NEUTROPHILS % (AUTO) 78 % (42-75); PLATELET COUNT 359 10^3/uL (130-400); WHITE BLOOD COUNT 17.3 10^3/uL (4.3-11.0)
[2022-12-02 04:11] LABS: ALBUMIN 2.1 GM/DL (3.2-4.5); BILIRUBIN,TOTAL 0.4 MG/DL (0.1-1.0); CALCIUM 8.2 MG/DL (8.5-10.1); CREATININE SERUM 0.71 MG/DL (0.60-1.30); MAGNESIUM 1.5 MG/DL (1.6-2.4); PHOSPHORUS 3.4 MG/DL (2.3-4.7); POTASSIUM 3.3 MMOL/L (3.6-5.0)
[2022-12-02] MEDS: MAGNESIUM 1 GM/100 ML IVPB 100 ML IV SCH ×5 (04:31→07:41)
[2022-12-02] MEDS: KCL 20 MEQ TAB (K-DUR) PO SCH (04:31)
[2022-12-02] MEDS: POTASSIUM CL 10MEQ/50ML IVPB 50 ML IV SCH ×6 (04:31→13:37)
[2022-12-02] MEDS ORDERED: POTASSIUM CL 10MEQ/50ML IVPB 50 ML IV SCH (06:00)
[2022-12-02] MEDS ORDERED: MAGNESIUM 1 GM/100 ML IVPB 100 ML IV SCH (06:00)
[2022-12-02] MEDS ORDERED: KCL 20 MEQ TAB (K-DUR) PO SCH (06:00)
[2022-12-02] MEDS: SUCRALFATE 1 GM (CARAFATE) TAB PO SCH ×4 (06:03→20:16)
[2022-12-02] MEDS: PIPERACILLIN SODIUM/TAZOBACTAM 4.5 GM in NS (IVPB) 100 ML IV SCH ×3 (06:03→23:50)
[2022-12-02] MEDS: CYANOCOBALAMIN 1,000 MCG (VITAMIN B-12) TABLET PO SCH (06:03)
[2022-12-02 06:48] LABS: ABG BASE EXCESS 6.5 MMOL/L (-2.5-2.5); ABG OXYGEN SATURATION 96 % (94-100); ABG PCO2 54 MMHG (35-45); ABG PH 7.38 (7.37-7.43); ABG PO2 75 MMHG (79-93); ABG TCO2 33.1 MMOL/L (21.0-31.0)
[2022-12-02 06:49] LABS: INSPIRED O2 4 L; VENTILATOR NO
[2022-12-02] MEDS: PANTOPRAZOLE 40 MG (PROTONIX) TAB PO SCH ×2 (08:18→20:17)
[2022-12-02] MEDS: FOLIC ACID 1 MG TAB PO SCH (08:18)
[2022-12-02] MEDS: DOCUSATE SODIUM 100 MG (COLACE) CAP PO SCH ×2 (08:22→20:17)
[2022-12-02] MEDS: SENNA W/DOCUSATE (SENOKOT S) TABLET PO SCH ×2 (08:22→20:17)
[2022-12-02] MEDS: LACTULOSE SYRUP 10GM/15ML (ENULOSE) 30ML UDC PO SCH ×2 (08:22→20:17)
[2022-12-02] MEDS: SENNOSIDES 8.6 MG (SENOKOT) TAB PO SCH ×2 (08:23→20:17)
[2022-12-02] MEDS ORDERED: FUROSEMIDE 40 MG/4 ML INJ (LASIX) IVP SCH (09:00)
--- NOTE | 2022-12-02 09:06 | Progress Note ---
MIKKI LAN 12/02/22905: Subjective Date Seen by a Provider: Dec 02, 2022 Time Seen by a Provider: 08:30 Subjective/Events-last exam Patient is seen this AM at bedside in the ICU. She says she feels a little better and slept well overnight. She had two BMs yesterday after escalating bowel regimen. She says she is trying to eat more but is still not drinking much. She has not been out of bed. Her and herself have questions regarding length of stay and cause of new heart problems. During exam, sitting forward in bed caused patient to become SOB and desat to low 80s on monitor. Nursing at bedside reports no concerns other than patient's labile HRs. Focused Exam Lactate Level 11/30/22 22:07: Lactic Acid Level 0.91 Objective Exam Last Set of Vital Signs Vital Signs Date Time Temp Pulse Resp B/P (MAP) Pulse Ox O2 Delivery O2 Flow Rate FiO2 12/02/22 08:00 98 28 150/82 (104) 91 Nasal Cannula 4.00 12/02/22 07:43 36.2 Capillary Refill : Less Than 3 Seconds I&O Intake and Output 12/02/22 00:00 Intake Total 1630 ml Output Total 3325 ml Balance -1695 ml Intake Oral 1280 ml IV Total 350 ml Output Urine Total 3325 ml # Bowel Movements 2 General: Alert, Oriented X3, No Acute Distress HEENT: Atraumatic, EOMI Neck: Supple Lungs: Other (Fine inspiratory crackles in lung bases. Reduced lung sounds throughout. ) Heart: Normal S1, Normal S2, No Murmurs, Other (Irregularly irregular. Peripheral pulses 2+/4. ) Extremities: No Clubbing, No Cyanosis, No Edema, Normal Pulses Skin: No Rashes, No Breakdown Neuro: Normal Speech, Normal Tone Psych/Mental Status: Mental Status NL, Mood NL Results Lab Laboratory Tests 12/01/22 10:43: Blood Gas Puncture Site R RADIAL, Blood Gas Patient Temperature 37.0, Arterial Blood pH 7.40, Arterial Blood Partial Pressure CO2 46H, Arterial Blood Partial Pressure O2 84, Arterial Blood HCO3 28H, Arterial Blood Total CO2 29.0, Arterial Blood Oxygen Saturation 98, Arterial Blood Base Excess 3.2H, Delfino Test YES-POS, Blood Gas Ventilator Setting NO, Blood Gas Inspired Oxygen 4 12/02/22 03:40: White Blood Count 17.3H, Red Blood Count 3.04L, Hemoglobin 8.0L, Hematocrit 27L, Mean Corpuscular Volume 87, Mean Corpuscular Hemoglobin 26, Mean Corpuscular Hemoglobin Concent 30L, Red Cell Distribution Width 23.9H, Platelet Count 359, Mean Platelet Volume 9.8, Immature Granulocyte % (Auto) 8, Neutrophils (%) (Auto) 78H, Lymphocytes (%) (Auto) 8L, Monocytes (%) (Auto) 5, Eosinophils (%) (Auto) 1, Basophils (%) (Auto) 0, Neutrophils # (Auto) 13.5H, Lymphocytes # (Auto) 1.4, Monocytes # (Auto) 0.8, Eosinophils # (Auto) 0.1, Basophils # (Auto) 0.1, Immature Granulocyte # (Auto) 1.4H, Sodium Level 142, Potassium Level 3.3L, Chloride Level 104, Carbon Dioxide Level 28, Anion Gap 10, Blood Urea Nitrogen 14, Creatinine 0.71, Estimat Glomerular Filtration Rate 86, BUN/Creatinine Ratio 20, Glucose Level 114H, Calcium Level 8.2L, Corrected Calcium 9.7, Phosphorus Level 3.4, Magnesium Level 1.5L, Total Bilirubin 0.4, Aspartate Amino Transf (AST/SGOT) 25, Alanine Aminotransferase (ALT/SGPT) 25, Alkaline Phosphatase 71, Total Protein 6.0L, Albumin 2.1L 12/02/22 06:10: Blood Gas Puncture Site r radial, Blood Gas Patient Temperature 37.0, Arterial Blood pH 7.38, Arterial Blood Partial Pressure CO2 54H, Arterial Blood Partial Pressure O2 75L, Arterial Blood HCO3 32H, Arterial Blood Total CO2 33.1H, Arterial Blood Oxygen Saturation 96, Arterial Blood Base Excess 6.5H, Delfino Test , Blood Gas Ventilator Setting NO, Blood Gas Inspired Oxygen 4 L Radiology NAME: HUEY WOODARD [facility] REC#: [id number] PT STATUS: ADM IN : 1940 PHYSICIAN: VICKY ANGEL DO ADMIT DATE: 11/30/22/ICU Signed Date of Exam:12/01/22 CHEST 1 VIEW, AP/PA ONLY INDICATION: CHF. Frontal chest obtained at 9:16 a.m. and compared to yesterday. Cardiomegaly is again noted. There is unchanged central vascular congestion with interstitial edema and bibasilar infiltrates. The right IJ catheter is unchanged. IMPRESSION: Unchanged cardiomegaly with central vascular congestion and edema and unchanged bilateral infiltrates. 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 - On Vancomycin q12 hr and Zosyn q8hr; Vancomycin trough with pharmacy - CXR on 12/01 continuing to show bilateral infiltrates, edema/vascular congestion, and small pleural effusions; - Echo from 12/01 showing Pulmonary artery systolic pressures in 60s-70s - Incentive spirometry at bedside; Albuterol PRN - WBC 21.7 -> 19.8 -> 17.3 (12/02) - ABG on admission 7.39/46/56/28, today is 7.38/54/75/32 - acute respiratory acidosis w/ underlying chronic respiratory acidosis compensated by metabolic alkalosis. - Vital signs stable this AM; 2) New onset A-Fib with intermittent RVR Pulmonary Hypertension - Consult to Cardiology, appreciate recommendations -Started diltiazem 240mg daily PO -Added diltiazem drip 5mg/hr last PM for uncontrolled rate. 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 Cr. 0.71. - Vital signs stable. 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 -Will hold A-fib CVA prophylaxis due to recent bleeds and need for transfusions 3) FEN/GI - No fluids at this time - Will initiate ICU electrolyte protocol; replacing K+, Mg today - Regular Diet; encouraged intake - Senna/docusate/lactulose/PEG for bowel regimen, Zofran PRN, Protonix and sucralfate, lactobacillus. - Urine output yesterday improved 1.6 ml/kg/hr (patel in place) Clinical Quality Measures DVT/VTE Risk/Contraindication: Contraindications-Pharm: Other *list below* Other: watermelon stomach with GIB VICKY ANGEL DO 12/03/22 0436: Supervisory-Addendum Brief Verification & Attestation Participated in pt care: history, MDM, physical Personally performed: exam, history, MDM, supervision of care Care discussed with: Medical Student Procedures: n/a Results interpretation: Verified all documentation Verification and Attestation of Medical Student E/M Service A medical student performed and documented this service in my presence. I reviewed and verified all information documented by the medical student and made modifications to such information, when appropriate. I personally performed the physical exam and medical decision making. Vicky Angel Dec 03, 2022,04:35 MIKKI LAN Dec 02, 2022 09:06 VICKY ANGEL DO Dec 03, 2022 04:36
--- NOTE | 2022-12-02 09:17 | Progress Note - Cardiology ---
Cardiology SOAP Progress Note Subjective: Shortness of breath modestly improved No cp or palp or syncope or swelling No n/v/d Gen weakness and malaise No focal weakness Objective: I&O/Vital Signs 12/01/22 12/01/22 12/01/22 12/02/22 21:34 22:00 23:00 00:00 Temp 36.9 Pulse 121 133 Resp 20 21 B/P (MAP) 143/67 (72) 123/72 (92) Pulse Ox 97 97 96 O2 Delivery Nasal Cannula Nasal Cannula Nasal Cannula O2 Flow Rate 4.00 4.00 4.00 12/02/22 12/02/22 12/02/22 12/02/22 00:00 00:00 00:03 01:00 Pulse 104 133 89 Resp 16 18 B/P (MAP) 151/60 (87) 151/60 137/60 (72) Pulse Ox 93 99 100 O2 Delivery Nasal Cannula Nasal Cannula Nasal Cannula O2 Flow Rate 4.00 4.00 4.00 12/02/22 12/02/22 12/02/22 12/02/22 01:00 02:00 03:00 04:00 Temp 37.0 Pulse 89 96 78 Resp 20 21 B/P (MAP) 126/50 (70) 130/50 (87) Pulse Ox 100 99 O2 Delivery Nasal Cannula Nasal Cannula O2 Flow Rate 4.00 4.00 12/02/22 12/02/22 12/02/22 12/02/22 04:00 04:00 05:00 06:00 Pulse 84 102 78 Resp 16 18 19 B/P (MAP) 143/66 (75) 135/62 (78) 135/64 (87) Pulse Ox 99 94 98 95 O2 Delivery Nasal Cannula Nasal Cannula Nasal Cannula Nasal Cannula O2 Flow Rate 4.00 4.00 4.00 4.00 12/02/22 12/02/22 12/02/22 12/02/22 06:54 07:00 07:06 07:43 Temp 36.2 Pulse 109 94 Resp 17 B/P (MAP) 138/59 (85) Pulse Ox 98 99 O2 Delivery Nasal Cannula Nasal Cannula O2 Flow Rate 4.00 4.00 12/02/22 12/02/22 08:00 08:00 Pulse 98 Resp 28 B/P (MAP) 150/82 (104) Pulse Ox 91 O2 Delivery Nasal Cannula Nasal Cannula O2 Flow Rate 4.00 4.00 12/02/22 00:00 Intake Total 1510 ml Output Total 3000 ml Balance -1490 ml Constitutional: AAO x 3, well-developed, well-nourished Respiratory: No accessory muscle use, No respiratory distress; chest expansion is symmetric, chest is bilaterally symmetric, other (dyspneic with conversation; coarse breath sounds) Cardiovascular: irregularly irregular; No JVD; S1 and S2 Gastrointestional: No tender; soft; No guarding; audible bowel sounds Extremities: other (mod bilat LE swelling) Neurologic/Psychiatric: other (moves all limbs equally) Skin: No rash on exposed areas, No ulcerations on exposed areas Results/Procedures: Labs Laboratory Tests 12/01/22 10:43: Blood Gas Puncture Site R RADIAL, Blood Gas Patient Temperature 37.0, Arterial Blood pH 7.40, Arterial Blood Partial Pressure CO2 46H, Arterial Blood Partial Pressure O2 84, Arterial Blood HCO3 28H, Arterial Blood Total CO2 29.0, Arterial Blood Oxygen Saturation 98, Arterial Blood Base Excess 3.2H, Delfino Test YES-POS, Blood Gas Ventilator Setting NO, Blood Gas Inspired Oxygen 4 12/02/22 03:40: White Blood Count 17.3H, Red Blood Count 3.04L, Hemoglobin 8.0L, Hematocrit 27L, Mean Corpuscular Volume 87, Mean Corpuscular Hemoglobin 26, Mean Corpuscular Hemoglobin Concent 30L, Red Cell Distribution Width 23.9H, Platelet Count 359, Mean Platelet Volume 9.8, Immature Granulocyte % (Auto) 8, Neutrophils (%) (Auto) 78H, Lymphocytes (%) (Auto) 8L, Monocytes (%) (Auto) 5, Eosinophils (%) (Auto) 1, Basophils (%) (Auto) 0, Neutrophils # (Auto) 13.5H, Lymphocytes # (Auto) 1.4, Monocytes # (Auto) 0.8, Eosinophils # (Auto) 0.1, Basophils # (Auto) 0.1, Immature Granulocyte # (Auto) 1.4H, Sodium Level 142, Potassium Level 3.3L, Chloride Level 104, Carbon Dioxide Level 28, Anion Gap 10, Blood Urea Nitrogen 14, Creatinine 0.71, Estimat Glomerular Filtration Rate 86, BUN/Creatinine Ratio 20, Glucose Level 114H, Calcium Level 8.2L, Corrected Calcium 9.7, Phosphorus Level 3.4, Magnesium Level 1.5L, Total Bilirubin 0.4, Aspartate Amino Transf (AST/SGOT) 25, Alanine Aminotransferase (ALT/SGPT) 25, Alkaline Phosphatase 71, Total Protein 6.0L, Albumin 2.1L 12/02/22 06:10: Blood Gas Puncture Site r radial, Blood Gas Patient Temperature 37.0, Arterial Blood pH 7.38, Arterial Blood Partial Pressure CO2 54H, Arterial Blood Partial Pressure O2 75L, Arterial Blood HCO3 32H, Arterial Blood Total CO2 33.1H, Arterial Blood Oxygen Saturation 96, Arterial Blood Base Excess 6.5H, Delfino Test , Blood Gas Ventilator Setting NO, Blood Gas Inspired Oxygen 4 L Laboratory Tests 11/30/22 22:07 12/01/22 05:00 12/02/22 03:40 A/P: Assessment: Newly dx PAF with intermittent RVR - [place] [facility] [place] Progressive dyspnea - likely d/t prob pneumonia and new onset CHF Pneumonia - management per medical services CHF, acute diastolic - Echo on 12/01/22: LVEF 65-70%, mod enlargement of both atria, PASP 65-70 mmHg HTN Pulm HTN of undetermined etiology (see echo report of 12/01/22) HLD H/O GIB - GAVES syndrome - follows with Dr Ledesma of GI services in [place], [place] - cauterization approx 1 yr ago and again in June 2022 H/O scleroderma - follows with rheumatology in [place], [place] Plan: * Complex management due to multiple comorbities * Vent response during A Fib is not well controlled: add beta-nicole * We advise full OAC for stroke prophylaxis, however she has a h/o recurrent GIB's; we will leave the decision to Dr. Cesar who is the hospitalist providing her care * Continune diuretic therapy. Replace K * Management of pneumonia per medical services * Monitor lab closely * I discussed treatment options for A Fib with her and her , including MANJU Trevizo MD FACP [facility] Dec 02, 2022 09:17
[2022-12-02] MEDS ORDERED: meTOproloL SUCCINATE 50 MG (TOPROL XL) TAB PO ONE (09:30)
--- NOTE | 2022-12-02 10:02 | Tele-ICU Progress Note ---
Subjective Date Seen by a Provider: Dec 02, 2022 Time Seen by a Provider: 10:01 Subjective/Events-last exam (Tele-ICU Physician , Progress Note ) Service provided via interactive audio and video telecommunications E-CARE system to a patient admitted to ICU bed in [facility]. Patient is seen today due to persistent need of ICU care Available chart/ vitals / labs / Images reviewed Video assessment done using teleICU camera, rest of exam as per RN Discussed with RN Events overnight : Afebrile hemodynamically stable Respiratory - 4l I/O = neg 1600 Drips: Pressors- no Hospital course: (12/01) 82yF admitted from [facility] for higher level of care, New Afib, worsening repiratory status, bilateral PNA A/P Acute hypoxic resp failure due to PNA and pulm edema ( ? CHF - on 4 l NC - abx - diuresis to cont PNA with left effusion - on vanc and zocyn - ? 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 2/2 scleroderma / ILD - might need additional w/up Anemia - 2/2 above - Hb 8 , monitor Protein malnutrition - Lines : . Right IJ , (Central Line Necessity Reviewed) Quevedo: + 11/30 OG: Nutrition: po Analgesia: Anxiety/ delirium VTE Prophylaxis: scd Stress Ulcer Prophylaxis: ppi Plans in collaboration with bedside consultants and IM MDs. Discussed with RN to reach out if any questions or concerns A total of 31 minutes of critical care time was devoted to this patient today, required to treat and/or prevent further deterioration of critical care condition ( as above ) . I am remotely monitoring this patient from another state. I am unable to do the bedside exam, and history/physical and pertinent information is taken from other notes in the computer and bedside staff. . Sepsis Event Evaluation Height, Weight, BMI Height: '" Weight: lbs. oz. kg; 30.57 BMI Method: Focused Exam Lactate Level 11/30/22 22:07: Lactic Acid Level 0.91 Exam Exam Patient acknowledged, consented, and participated in this virtual visit which was conducted using real time audio/video Vital Signs Date Time Temp Pulse Resp B/P (MAP) Pulse Ox O2 Delivery O2 Flow Rate FiO2 12/02/22 08:00 98 28 150/82 (104) 91 Nasal Cannula 4.00 12/02/22 08:00 Nasal Cannula 4.00 12/02/22 07:43 36.2 12/02/22 07:06 94 12/02/22 07:00 109 17 138/59 (85) 99 Nasal Cannula 4.00 12/02/22 06:54 98 Nasal Cannula 4.00 12/02/22 06:00 78 19 135/64 (87) 95 Nasal Cannula 4.00 12/02/22 05:00 102 18 135/62 (78) 98 Nasal Cannula 4.00 12/02/22 04:00 94 Nasal Cannula 4.00 12/02/22 04:00 84 16 143/66 (75) 99 Nasal Cannula 4.00 12/02/22 04:00 37.0 12/02/22 03:00 78 21 130/50 (87) 99 Nasal Cannula 4.00 12/02/22 02:00 96 20 126/50 (70) 100 Nasal Cannula 4.00 12/02/22 01:00 89 12/02/22 01:00 89 18 137/60 (72) 100 Nasal Cannula 4.00 12/02/22 00:03 133 151/60 12/02/22 00:00 104 16 151/60 (87) 99 Nasal Cannula 4.00 12/02/22 00:00 93 Nasal Cannula 4.00 12/02/22 00:00 36.9 12/01/22 23:00 133 21 123/72 (92) 96 Nasal Cannula 4.00 12/01/22 22:00 121 20 143/67 (72) 97 Nasal Cannula 4.00 12/01/22 21:34 97 Nasal Cannula 4.00 12/01/22 21:00 115 32 142/87 (115) 95 Nasal Cannula 4.00 12/01/22 20:00 96 Nasal Cannula 4.00 12/01/22 20:00 37.2 12/01/22 20:00 126 21 135/83 (91) 92 Nasal Cannula 4.00 12/01/22 19:00 131 12/01/22 19:00 131 13 140/70 (75) 95 Nasal Cannula 4.00 12/01/22 18:00 112 20 147/70 (95) 98 Nasal Cannula 4.00 12/01/22 17:00 113 17 132/81 (98) 96 Nasal Cannula 4.00 12/01/22 16:00 37.1 12/01/22 16:00 96 Nasal Cannula 4.00 12/01/22 16:00 110 17 137/85 (102) 96 Nasal Cannula 4.00 12/01/22 15:00 123 20 158/89 (112) 96 Nasal Cannula 4.00 12/01/22 14:38 97 Nasal Cannula 4.00 12/01/22 14:00 123 23 146/62 (90) 90 Nasal Cannula 4.00 12/01/22 13:45 105 23 153/72 (99) 95 Nasal Cannula 4.00 12/01/22 13:30 106 19 135/71 (92) 96 Nasal Cannula 4.00 12/01/22 13:15 117 32 165/78 (107) 97 Nasal Cannula 4.00 12/01/22 13:00 105 22 166/87 (113) 95 Nasal Cannula 4.00 12/01/22 12:51 93 12/01/22 12:30 113 23 160/66 (97) 96 Nasal Cannula 4.00 12/01/22 12:00 94 Nasal Cannula 4.00 12/01/22 10:45 93 Nasal Cannula 4.00 12/01/22 10:25 113 I & O 12/02/22 07:00 Intake Total 1510 ml Output Total 3325 ml Balance -1815 ml Height & Weight Height: '" Weight: lbs. oz. kg; 30.57 BMI Method: General Appearance: No Apparent Distress, WD/WN, Anxious, Chronically ill, Mild Distress, Thin, Other (chronically ill) HEENT: PERRL/EOMI, Normal ENT Inspection, Pharynx Normal Neck: Full Range of Motion, Normal Inspection, Non Tender, Supple, Carotid Bruit Respiratory: Chest Non Tender, No Respiratory Distress, Accessory Muscle Use, Crackles, Decreased Breath Sounds Cardiovascular: No Edema, No Gallop, No JVD, No Murmur, Normal Peripheral Pulses, Irregularly Irregular, Tachycardia Capillary Refill: Less Than 3 Seconds Extremity: Normal Capillary Refill, Normal Inspection, Normal Range of Motion, Non Tender, No Calf Tenderness, No Pedal Edema Neurologic/Psychiatric: Alert, Oriented x3, Normal 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 Patient is seen today due to persistent need of ICU care Available chart/ vitals / labs / Images reviewed Video assessment done using teleICU camera, rest of exam as per RN Discussed with RN Events overnight : Afebrile hemodynamically stable Respiratory - 4l I/O = neg 1600 Drips: Pressors- no Hospital course: (12/01) 82yF admitted from [facility] for higher level of care, New Afib, worsening repiratory status, bilateral PNA A/P Acute hypoxic resp failure due to PNA and pulm edema ( ? CHF - on 4 l NC - abx - diuresis to cont PNA with left effusion - on vanc and zocyn - ? 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 2/2 scleroderma / ILD - might need additional w/up Anemia - 2/2 above - Hb 8 , monitor Protein malnutrition - Lines : . Right IJ , (Central Line Necessity Reviewed) Quevedo: + 11/30 OG: Nutrition: po Analgesia: Anxiety/ delirium VTE Prophylaxis: scd Stress Ulcer Prophylaxis: ppi Plans in collaboration with bedside consultants and IM MDs. Discussed with RN to reach out if any questions or concerns A total of 31 minutes of critical care time was devoted to this patient today, required to treat and/or prevent further deterioration of critical care condition ( as above ) . I am remotely monitoring this patient from another state. I am unable to do the bedside exam, and history/physical and pertinent information is taken from other notes in the computer and bedside staff. . JACQUES GANDARA MD Dec 02, 2022 10:02
[2022-12-02] MEDS ORDERED: TROUGH ORDER-PHARMACY XX ONE (11:00)
[2022-12-02] MEDS: LACTOBACILLUS ACIDOPHILUS (PROBIOTIC) CAPSULE PO SCH ×2 (14:50→18:24)
[2022-12-02] MEDS: meTOproloL SUCCINATE 50 MG (TOPROL XL) TAB PO SCH (20:16)
[2022-12-02] MEDS: GABAPENTIN 300 MG (NEURONTIN) CAP PO SCH (20:17)
[2022-12-03] MEDS: RT-ALBUTEROL SULF 2.5 MG/3 ML PRE-MIX VIAL INH SCH ×4 (02:42→21:43)
[2022-12-03 03:21] LABS: BASOPHILS % (AUTO) 0 % (0-10); EOSINOPHILS # (AUTO) 0.3 10^3/uL (0.0-0.3); EOSINOPHILS % (AUTO) 2 % (0-10); HEMATOCRIT 27 % (35-52); HEMOGLOBIN 8.2 g/dL (11.5-16.0); LYMPHOCYTES # (AUTO) 1.3 10^3/uL (1.0-4.0); LYMPHOCYTES % (AUTO) 9 % (12-44); MEAN CORPUSCULAR HEMOGLOBIN 27 pg (25-34); MEAN CORPUSCULAR HGB CONC 31 g/dL (32-36); MEAN CORPUSCULAR VOLUME 87 fL (80-99); MEAN PLATELET VOLUME 9.6 fL (9.0-12.2); MONOCYTES # (AUTO) 0.7 10^3/uL (0.0-1.0); MONOCYTES % (AUTO) 5 % (0-12); NEUTROPHILS # (AUTO) 12.2 10^3/uL (1.8-7.8); NEUTROPHILS % (AUTO) 79 % (42-75); PLATELET COUNT 343 10^3/uL (130-400); WHITE BLOOD COUNT 15.4 10^3/uL (4.3-11.0)
[2022-12-03 03:29] LABS: ALBUMIN 2.4 GM/DL (3.2-4.5); POTASSIUM 4.4 MMOL/L (3.6-5.0)
[2022-12-03 03:30] LABS: CALCIUM 8.1 MG/DL (8.5-10.1)
[2022-12-03 03:32] LABS: TOTAL PROTEIN 6.2 GM/DL (6.4-8.2)
[2022-12-03 03:33] LABS: BILIRUBIN,TOTAL 0.3 MG/DL (0.1-1.0)
[2022-12-03 03:35] LABS: CREATININE SERUM 0.71 MG/DL (0.60-1.30); PHOSPHORUS 3.3 MG/DL (2.3-4.7)
[2022-12-03 03:38] LABS: MAGNESIUM 1.8 MG/DL (1.6-2.4)
[2022-12-03] MEDS: POTASSIUM CL 10MEQ/50ML IVPB 50 ML IV SCH (03:42)
[2022-12-03] MEDS: MAGNESIUM 1 GM/100 ML IVPB 100 ML IV SCH ×3 (03:42→05:27)
[2022-12-03] MEDS: KCL 20 MEQ TAB (K-DUR) PO SCH (03:42)
[2022-12-03 03:45] LABS: VANCOMYCIN,TROUGH 13.6 UG/ML (10.0-20.0)
[2022-12-03 04:19] LABS: ABG BASE EXCESS 9.1 MMOL/L (-2.5-2.5); ABG OXYGEN SATURATION 99 % (94-100); ABG PCO2 56 MMHG (35-45); ABG PO2 83 MMHG (79-93); ABG TCO2 35.7 MMOL/L (21.0-31.0); ALLENS TEST YES-POS
[2022-12-03 04:20] LABS: INSPIRED O2 3L; VENTILATOR NO
[2022-12-03] MEDS: SUCRALFATE 1 GM (CARAFATE) TAB PO SCH ×4 (05:27→20:19)
[2022-12-03] MEDS: KCL 10 MEQ TAB (MICRO K) PO SCH (06:00)
[2022-12-03] MEDS ORDERED: TROUGH ORDER-PHARMACY XX ONE (06:00)
[2022-12-03] MEDS: PIPERACILLIN SODIUM/TAZOBACTAM 4.5 GM in NS (IVPB) 100 ML IV SCH ×2 (06:00→15:10)
--- NOTE | 2022-12-03 06:39 | Diagnostic Imaging Report ---
Indication: 82-year-old female with pneumonia Comparisons: 12/01/2022 FINDINGS: Single view chest shows cardiomegaly with moderate central venous congestion. There are scattered 5 lobe alveolar infiltrates with more confluent consolidations in both lower lobes and left lingula. Underlying small to moderate bilateral pleural effusions are again seen. Overall this pattern is similar to the previous study. There is aortic calcific atherosclerosis. There is a right IJ central line with the tip projected over the right heart. Soft tissues and bony thorax are senescent. IMPRESSION: 1. Cardiomegaly with moderate congestive heart failure, similar to the previous study. 2. Bilateral lower lobe consolidations left greater than right with bilateral effusions left greater than right similar to the previous study. 3. Stable right IJ central line. Dictated by: Dictated on workstation # [id number]
[2022-12-03] MEDS: LACTOBACILLUS ACIDOPHILUS (PROBIOTIC) CAPSULE PO SCH ×3 (08:33→18:27)
[2022-12-03] MEDS: IRON SUCROSE 200 MG/10 ML (VENOFER) VIAL IV SCH (08:33)
[2022-12-03] MEDS: FUROSEMIDE 20 MG (LASIX) TAB PO SCH (08:34)
[2022-12-03] MEDS: FOLIC ACID 1 MG TAB PO SCH (08:34)
[2022-12-03] MEDS: meTOproloL SUCCINATE 50 MG (TOPROL XL) TAB PO SCH ×2 (08:34→20:19)
[2022-12-03] MEDS: PANTOPRAZOLE 40 MG (PROTONIX) TAB PO SCH ×2 (08:34→20:19)
--- NOTE | 2022-12-03 09:00 | Progress Note ---
MIKKI LAN 12/03/22 0900: Subjective Date Seen by a Provider: Dec 03, 2022 Time Seen by a Provider: 08:00 Subjective/Events-last exam Patient seen at bedside this AM. She is currently sitting up in her recliner, this is the first time she has been out of bed since admission. She reports she is doing better and feels less SOB. She had three BMs yesterday and feels she will have more. She has no complaints this AM other than wanting to get out of the ICU. During interview she is satting 100% on 3L N.C. During exam/leaning forward her O2 sats drop to 89-90% which is improved overall from yesterday. Focused Exam Lactate Level 11/30/22 22:07: Lactic Acid Level 0.91 Objective Exam Last Set of Vital Signs Vital Signs Date Time Temp Pulse Resp B/P (MAP) Pulse Ox O2 Delivery O2 Flow Rate FiO2 12/03/22 08:02 36.9 12/03/22 08:00 76 21 125/73 (90) 96 Nasal Cannula 3.00 Capillary Refill : Less Than 3 Seconds I&O Intake and Output 12/03/22 00:00 Intake Total 2150 ml Output Total 3325 ml Balance -1175 ml Intake Oral 1150 ml IV Total 1000 ml Output Urine Total 3325 ml # Bowel Movements 4 General: Alert, Oriented X3, No Acute Distress HEENT: Atraumatic, EOMI Neck: Supple, No JVD, No Thyromegaly Lungs: Other (Fine inspiratory crackles most apparent at lung bases. Reduced lung sounds in upper lobes. ) Heart: Regular Rate, Normal S1, Normal S2, Other (Sinus rhythm upon this exam. ) Abdomen: Normal Bowel Sounds, Soft, No Tenderness Extremities: No Cyanosis, No Edema, Normal Pulses Skin: No Rashes Neuro: Normal Speech Psych/Mental Status: Mental Status NL, Mood NL Results Lab Laboratory Tests 12/02/22 11:00: Vancomycin Level Trough 22.0H 12/02/22 21:45: Stool Occult Blood Immunoassay POSITIVEH 12/03/22 03:15: Vancomycin Level Trough 13.6, White Blood Count 15.4H, Red Blood Count 3.09L, Hemoglobin 8.2L, Hematocrit 27L, Mean Corpuscular Volume 87, Mean Corpuscular Hemoglobin 27, Mean Corpuscular Hemoglobin Concent 31L, Red Cell Distribution Width 23.9H, Platelet Count 343, Mean Platelet Volume 9.6, Immature Granulocyte % (Auto) 6, Neutrophils (%) (Auto) 79H, Lymphocytes (%) (Auto) 9L, Monocytes (%) (Auto) 5, Eosinophils (%) (Auto) 2, Basophils (%) (Auto) 0, Neutrophils # (Auto) 12.2H, Lymphocytes # (Auto) 1.3, Monocytes # (Auto) 0.7, Eosinophils # (Auto) 0.3, Basophils # (Auto) 0.0, Immature Granulocyte # (Auto) 1.0H, Sodium Level 141, Potassium Level 4.4, Chloride Level 102, Carbon Dioxide Level 28, Anion Gap 11, Blood Urea Nitrogen 11, Creatinine 0.71, Estimat Glomerular Filtration Rate 86, BUN/Creatinine Ratio 15, Glucose Level 116H, Calcium Level 8.1L, Corrected Calcium 9.4, Phosphorus Level 3.3, Magnesium Level 1.8, Total Bilirubin 0.3, Aspartate Amino Transf (AST/SGOT) 26, Alanine Aminotransferase (ALT/SGPT) 28, Alkaline Phosphatase 59, Total Protein 6.2L, Albumin 2.4L 12/03/22 04:05: Blood Gas Puncture Site RRAD, Blood Gas Patient Temperature 37.0, Arterial Blood pH 7.40, Arterial Blood Partial Pressure CO2 56H, Arterial Blood Partial Pressure O2 83, Arterial Blood HCO3 34H, Arterial Blood Total CO2 35.7H, Arterial Blood Oxygen Saturation 99, Arterial Blood Base Excess 9.1H, Delfino Test YES-POS, Blood Gas Ventilator Setting NO, Blood Gas Inspired Oxygen 3L Radiology NAME: HUEY WOODARD [facility] REC#: [id number] PT STATUS: ADM IN : 1940 PHYSICIAN: JACQUES GANDARA MD ADMIT DATE: 11/30/22/ICU Signed Date of Exam:12/03/22 CHEST 1 VIEW, AP/PA ONLY Indication: 82-year-old female with pneumonia Comparisons: 12/01/2022 FINDINGS: Single view chest shows cardiomegaly with moderate central venous congestion. There are scattered 5 lobe alveolar infiltrates with more confluent consolidations in both lower lobes and left lingula. Underlying small to moderate bilateral pleural effusions are again seen. Overall this pattern is similar to the previous study. There is aortic calcific atherosclerosis. There is a right IJ central line with the tip projected over the right heart. Soft tissues and bony thorax are senescent. IMPRESSION: 1. Cardiomegaly with moderate congestive heart failure, similar to the previous study. 2. Bilateral lower lobe consolidations left greater than right with bilateral effusions left greater than right similar to the previous study. 3. Stable right IJ central line. Dictated by: Dictated on workstation # [id number] Dict: 12/03/22 0500 Trans: 12/03/22 0647 BANNER [id number] Interpreted by: DANILO GARCIA MD Electronically signed by: DANILO GARCIA MD 12/03/22 0647 NAME: HUEY WOODARD [facility] REC#: [id number] PT STATUS: ADM IN : 1940 PHYSICIAN: VICKY ANGEL DO ADMIT DATE: 11/30/22/ICU Signed Date of Exam:12/03/22 CT ANGIO CHEST W PROCEDURE: CT angiography Chest. TECHNIQUE: After intravenous administration of contrast, thin section axial CT angiography of the chest was performed. 3D MIP reconstructions were made. All CT scans use one or more of the following dose optimizing techniques: Automated exposure control, MA and/or KvP adjustment based on a patient size and exam type, or iterative reconstruction. INDICATION: Pneumonia. COMPARISON: Chest radiograph of 12/03/2022. FINDINGS: Vasculature: No pulmonary emboli. No CT evidence of pulmonary hypertension or right ventricular strain. Thoracic aorta is normal in caliber. No aortic dissection or pseudoaneurysm. Heart and mediastinum: Visualized thyroid is normal. No supraclavicular or axillary lymphadenopathy. There are numerous borderline enlarged mediastinal and hilar lymph nodes that are likely reactive in nature. Cardiomegaly without pericardial effusion. Pleura: Trace bilateral pleural effusions. No pneumothorax. Lungs and airway: No endoluminal lesion in the trachea or central bronchi. Consolidations with air bronchograms are present in the lingula and left lower lobe. Subpleural opacities and some mild septal thickening are noted in the right lung base. Upper abdomen: Low-attenuation 2.2 cm left adrenal nodule is likely a benign adenoma, but that cannot be confirmed on this exam. Musculoskeletal: Lucent focus within the T9 vertebral body likely a hemangioma. IMPRESSION: 1. No pulmonary emboli or acute aortic syndrome. 2. Left greater than right basilar pulmonary consolidations have a differential would include multifocal pneumonia or asymmetric pulmonary edema. 3. Trace bilateral pleural effusions. 4. Mildly enlarged mediastinal and hilar lymph nodes are likely reactive in nature due to the pulmonary pathology. 5. Low-attenuation left adrenal nodule is highly likely a benign adenoma. If deemed warranted, a follow-up outpatient/nonemergent CT abdomen without and with IV contrast per the adrenal protocol could be utilized to confirm. 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 - On Vancomycin q12 hr (last dose 12/02) and on Zosyn q8hr; - Echo from 12/01 showing Pulmonary artery systolic pressures in 60s-70s - Incentive spirometry at bedside; Albuterol PRN - WBC 21.7 -> 19.8 -> 17.3 -> 15.4 (12/03) - ABG on admission 7.39/46/56/28, -> 7.38/54/75/32 -> 7.4/56/83/34 - continuing to show compensated respiratory acidosis. - Vital signs stable this AM. -Satting 99-100% on 3L N.C. at bedside but desatting with any exertion. Could work toward weaning O2 at rest. -CTA suggestive of multifocal pneumonia vs asymmetric pulmonary edema and trace bilateral pleural effusions on 12/03 2) New onset A-Fib with intermittent RVR Pulmonary Hypertension Congestive heart failure - Consult to Cardiology, appreciate recommendations -Started diltiazem 240mg daily PO -Added diltiazem drip 5mg/hr on 12/01 for uncontrolled rate for 24 hrs - DC'd last PM. -Added metoprolol 50mg BID -HR has been well-controlled. No PRNs needed overnight; In sinus rhythm upon exam today. 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 3) Chronic GI Bleeding 11/05 Watermelon Stomach -On sucralfate and protonix at home, will continue - Hgb stable. -Will hold A-fib CVA prophylaxis due to recent bleeds and need for transfusions -Hemoccult positive yesterday; matches with chronic GI bleeding 3) FEN/GI - No fluids at this time - ICU electrolyte protocol; replacing K+, Mg today - Regular Diet; encouraged intake - Senna/docusate/lactulose/PEG for bowel regimen, Zofran PRN, Protonix and sucralfate, lactobacillus. - Urine output continuing to be good 1.61 ml/kg/hr (patel in place) Dispo: Stable. Off diltiazem drip since yesterday. Will work to transfer to med/surg floor and continue oxygen weaning. Consider PT/OT consults. Clinical Quality Measures DVT/VTE Risk/Contraindication: Contraindications-Pharm: Other *list below* Other: watermelon stomach with GIB VICKY ANGEL DO 12/04/22 0451: Supervisory-Addendum Brief Verification & Attestation Participated in pt care: history, MDM, physical Personally performed: exam, history, MDM, supervision of care Care discussed with: Medical Student Procedures: n/a Results interpretation: Verified all documentation Verification and Attestation of Medical Student E/M Service A medical student performed and documented this service in my presence. I reviewed and verified all information documented by the medical student and made modifications to such information, when appropriate. I personally performed the physical exam and medical decision making. Vicky Angel, Dec 04, 2022,04:50 MIKKI LAN Dec 03, 2022 09:00 VICKY ANGEL DO Dec 04, 2022 04:51
[2022-12-03] MEDS: SENNA W/DOCUSATE (SENOKOT S) TABLET PO SCH ×2 (09:08→20:19)
[2022-12-03] MEDS: SENNOSIDES 8.6 MG (SENOKOT) TAB PO SCH ×2 (09:08→20:20)
[2022-12-03] MEDS: DOCUSATE SODIUM 100 MG (COLACE) CAP PO SCH ×2 (09:08→20:19)
[2022-12-03] MEDS: LACTULOSE SYRUP 10GM/15ML (ENULOSE) 30ML UDC PO SCH ×2 (09:08→20:19)
--- NOTE | 2022-12-03 09:39 | Progress Note - Cardiology ---
Cardiology SOAP Progress Note Subjective: Feels better today Denies palp or syncope or swelling Shortness of breath improving No cp No n/v/d Objective: I&O/Vital Signs 12/02/22 12/02/22 12/02/22 12/02/22 21:49 22:00 23:00 23:50 Pulse 77 78 Resp 21 21 B/P (MAP) 156/63 (94) 150/63 (92) Pulse Ox 96 97 96 O2 Delivery Nasal Cannula Nasal Cannula Nasal Cannula Nasal Cannula O2 Flow Rate 3.00 4.00 4.00 3.00 12/02/22 12/02/22 12/03/22 12/03/22 23:56 23:59 00:00 01:00 Temp 37.0 Pulse 70 75 Resp 19 B/P (MAP) 161/61 (94) 145/59 (87) Pulse Ox 100 98 O2 Delivery Nasal Cannula Nasal Cannula Nasal Cannula O2 Flow Rate 3.00 3.00 3.00 12/03/22 12/03/22 12/03/22 12/03/22 01:00 02:00 02:42 03:00 Pulse 80 72 73 Resp 17 19 B/P (MAP) 148/70 (96) 157/64 (95) Pulse Ox 98 100 99 O2 Delivery Nasal Cannula Nasal Cannula Nasal Cannula O2 Flow Rate 3.00 3.00 3.00 12/03/22 12/03/22 12/03/22 12/03/22 04:00 04:12 04:13 05:00 Temp 37.0 Pulse 74 71 Resp 24 14 B/P (MAP) 154/66 (95) 132/51 (78) Pulse Ox 96 99 O2 Delivery Nasal Cannula Nasal Cannula Nasal Cannula O2 Flow Rate 3.00 3.00 3.00 12/03/22 12/03/22 12/03/22 12/03/22 06:00 07:00 07:00 08:00 Pulse 71 68 72 76 Resp 23 15 21 B/P (MAP) 145/54 (84) 152/92 (112) 125/73 (90) Pulse Ox 99 100 96 O2 Delivery Nasal Cannula Nasal Cannula Nasal Cannula O2 Flow Rate 3.00 3.00 3.00 12/03/22 12/03/22 12/03/22 12/03/22 08:00 08:02 08:05 09:00 Temp 36.9 Pulse 73 Resp 22 B/P (MAP) 159/73 (101) Pulse Ox 91 O2 Delivery Nasal Cannula Nasal Cannula Room Air O2 Flow Rate 2.00 2.00 12/03/22 09:00 O2 Delivery Room Air 12/03/22 00:00 Intake Total 1050 ml Output Total 2200 ml Balance -1150 ml Constitutional: AAO x 3, well-developed, well-nourished Respiratory: No accessory muscle use, No respiratory distress; chest expansion is symmetric, chest is bilaterally symmetric, other (dyspneic with conversation; coarse breath sounds) Cardiovascular: irregularly irregular; No JVD; S1 and S2 Gastrointestional: No tender; soft; No guarding; audible bowel sounds Extremities: other (mod bilat LE swelling) Neurologic/Psychiatric: other (moves all limbs equally) Skin: No rash on exposed areas, No ulcerations on exposed areas Results/Procedures: Labs Laboratory Tests 12/02/22 11:00: Vancomycin Level Trough 22.0H 12/02/22 21:45: Stool Occult Blood Immunoassay POSITIVEH 12/03/22 03:15: Vancomycin Level Trough 13.6, White Blood Count 15.4H, Red Blood Count 3.09L, Hemoglobin 8.2L, Hematocrit 27L, Mean Corpuscular Volume 87, Mean Corpuscular Hemoglobin 27, Mean Corpuscular Hemoglobin Concent 31L, Red Cell Distribution Width 23.9H, Platelet Count 343, Mean Platelet Volume 9.6, Immature Granulocyte % (Auto) 6, Neutrophils (%) (Auto) 79H, Lymphocytes (%) (Auto) 9L, Monocytes (%) (Auto) 5, Eosinophils (%) (Auto) 2, Basophils (%) (Auto) 0, Neutrophils # (Auto) 12.2H, Lymphocytes # (Auto) 1.3, Monocytes # (Auto) 0.7, Eosinophils # (Auto) 0.3, Basophils # (Auto) 0.0, Immature Granulocyte # (Auto) 1.0H, Sodium Level 141, Potassium Level 4.4, Chloride Level 102, Carbon Dioxide Level 28, Anion Gap 11, Blood Urea Nitrogen 11, Creatinine 0.71, Estimat Glomerular Filtration Rate 86, BUN/Creatinine Ratio 15, Glucose Level 116H, Calcium Level 8.1L, Corrected Calcium 9.4, Phosphorus Level 3.3, Magnesium Level 1.8, Total Bilirubin 0.3, Aspartate Amino Transf (AST/SGOT) 26, Alanine Aminotransferase (ALT/SGPT) 28, Alkaline Phosphatase 59, Total Protein 6.2L, Albumin 2.4L 12/03/22 04:05: Blood Gas Puncture Site RRAD, Blood Gas Patient Temperature 37.0, Arterial Blood pH 7.40, Arterial Blood Partial Pressure CO2 56H, Arterial Blood Partial Pressure O2 83, Arterial Blood HCO3 34H, Arterial Blood Total CO2 35.7H, Arterial Blood Oxygen Saturation 99, Arterial Blood Base Excess 9.1H, Delfino Test YES-POS, Blood Gas Ventilator Setting NO, Blood Gas Inspired Oxygen 3L Laboratory Tests 12/02/22 03:40 12/03/22 03:15 A/P: Assessment: Newly dx PAF with intermittent RVR - [facility] [place] [facility] [place] Progressive dyspnea - likely d/t prob pneumonia and new onset CHF Pneumonia - management per medical services CHF, acute diastolic - Echo on 12/01/22: LVEF 65-70%, mod enlargement of both atria, PASP 65-70 mmHg HTN Pulm HTN of undetermined etiology (see echo report of 12/01/22) HLD H/O GIB - GAVES syndrome - follows with Dr Ledesma of GI services in [place], [place] - cauterization approx 1 yr ago and again in June 2022 Marked anemia, ?GIB - managed by the Med avery H/O scleroderma - follows with Rheumatology in [place], [place] Plan: * Complex management due to multiple comorbities * Continue current regimen for vent rate control during PAF * We advise full OAC for stroke prophylaxis, however she has a h/o recurrent GIB's; we will leave the decision to Dr. Cesar who is the hospitalist providing her care * Continune diuretic therapy. Replace K * Management of pneumonia per medical services * Monitor lab closely * I discussed treatment options for A Fib with her and her , including MANJU Trevizo MD FACP [facility] CCDS Dec 03, 2022 09:39
--- NOTE | 2022-12-03 10:40 | Tele-ICU Progress Note ---
Subjective Date Seen by a Provider: Dec 03, 2022 Time Seen by a Provider: 10:40 Subjective/Events-last exam (Tele-ICU Physician , Progress Note ) Service provided via interactive audio and video telecommunications E-CARE system to a patient admitted to ICU bed in [facility]. Patient is seen today due to persistent need of ICU care Available chart/ vitals / labs / Images reviewed Video assessment done using teleICU camera, rest of exam as per RN Discussed with RN Events overnight : Afebrile hemodynamically stable Respiratory - 4l I/O = neg Drips: Pressors- no Hospital course: (12/01) 82yF admitted from [facility] for higher level of care, New Afib, worsening repiratory status, bilateral PNA 12/02 - -cardizem gtt , 12/03- -cardizem gtt OFF , 4 L NC A/P Acute hypoxic resp failure due to PNA and pulm edema ( ? CHF - on 4 l NC - abx - diuresis to cont PNA with left effusion - on vanc and zosyn - ? 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 2/2 scleroderma / ILD - might need additional w/up - avoid VO Anemia - 2/2 above - Hb 8 , monitor - on Fe supplement Lines : . Right IJ , (Central Line Necessity Reviewed) Quevedo: + 11/30 OG: Nutrition: po Analgesia: Anxiety/ delirium VTE Prophylaxis: scd Stress Ulcer Prophylaxis: ppi Plans in collaboration with bedside consultants and IM MDs. Discussed with RN to reach out if any questions or concerns A total of 20 minutes of critical care time was devoted to this patient today, required to treat and/or prevent further deterioration of critical care condition ( as above ) . I am remotely monitoring this patient from another state. I am unable to do the bedside exam, and history/physical and pertinent information is taken from other notes in the computer and bedside staff. . Sepsis Event Evaluation Height, Weight, BMI Height: '" Weight: lbs. oz. kg; 30.22 BMI Method: Focused Exam Lactate Level 11/30/22 22:07: Lactic Acid Level 0.91 Exam Exam Patient acknowledged, consented, and participated in this virtual visit which was conducted using real time audio/video Vital Signs Date Time Temp Pulse Resp B/P (MAP) Pulse Ox O2 Delivery O2 Flow Rate FiO2 12/03/22 09:56 92 Room Air 2.00 12/03/22 09:00 Room Air 12/03/22 09:00 73 22 159/73 (101) 91 Room Air 12/03/22 08:05 Nasal Cannula 2.00 12/03/22 08:02 36.9 12/03/22 08:00 Nasal Cannula 2.00 12/03/22 08:00 76 21 125/73 (90) 96 Nasal Cannula 3.00 12/03/22 07:00 72 12/03/22 07:00 68 15 152/92 (112) 100 Nasal Cannula 3.00 12/03/22 06:00 71 23 145/54 (84) 99 Nasal Cannula 3.00 12/03/22 05:00 71 14 132/51 (78) 99 Nasal Cannula 3.00 12/03/22 04:13 Nasal Cannula 3.00 12/03/22 04:12 37.0 12/03/22 04:00 74 24 154/66 (95) 96 Nasal Cannula 3.00 12/03/22 03:00 73 19 157/64 (95) 99 Nasal Cannula 3.00 12/03/22 02:42 100 Nasal Cannula 3.00 12/03/22 02:00 72 17 148/70 (96) 98 Nasal Cannula 3.00 12/03/22 01:00 80 12/03/22 01:00 75 19 145/59 (87) 98 Nasal Cannula 3.00 12/03/22 00:00 70 21 161/61 (94) 100 Nasal Cannula 3.00 12/02/22 23:59 Nasal Cannula 3.00 12/02/22 23:56 37.0 12/02/22 23:50 Nasal Cannula 3.00 12/02/22 23:00 78 21 150/63 (92) 96 Nasal Cannula 4.00 12/02/22 22:00 77 21 156/63 (94) 97 Nasal Cannula 4.00 12/02/22 21:49 96 Nasal Cannula 3.00 12/02/22 21:00 75 20 162/67 (98) 98 Nasal Cannula 4.00 12/02/22 20:00 82 20 155/69 (97) 98 Nasal Cannula 4.00 12/02/22 20:00 Nasal Cannula 4.00 12/02/22 19:58 36.5 12/02/22 19:00 75 28 144/72 (96) 100 Nasal Cannula 4.00 12/02/22 19:00 80 12/02/22 18:00 90 19 151/61 (91) 99 Nasal Cannula 4.00 12/02/22 17:00 77 17 120/110 (113) 90 Nasal Cannula 4.00 12/02/22 16:00 80 21 143/61 (88) 90 Nasal Cannula 4.00 12/02/22 16:00 Nasal Cannula 4.00 12/02/22 15:44 36.7 12/02/22 15:00 82 21 149/60 (89) 94 Nasal Cannula 4.00 12/02/22 14:16 91 Nasal Cannula 4.00 12/02/22 14:00 77 22 151/71 (97) 97 Nasal Cannula 4.00 12/02/22 13:23 80 12/02/22 13:00 78 20 111/102 (105) 98 Nasal Cannula 4.00 12/02/22 12:00 Nasal Cannula 4.00 12/02/22 12:00 80 35 146/68 (94) 92 Nasal Cannula 4.00 12/02/22 11:38 36.6 12/02/22 11:00 94 19 154/75 (101) 94 Nasal Cannula 4.00 I & O 12/03/22 07:00 Intake Total 2350 ml Output Total 3525 ml Balance -1175 ml Height & Weight Height: '" Weight: lbs. oz. kg; 30.22 BMI Method: General Appearance: No Apparent Distress, WD/WN, Anxious, Chronically ill, Mild Distress, Thin, Other (chronically ill) HEENT: PERRL/EOMI, Normal ENT Inspection, Pharynx Normal Neck: Full Range of Motion, Normal Inspection, Non Tender, Supple, Carotid Bruit Respiratory: Chest Non Tender, No Respiratory Distress, Accessory Muscle Use, Crackles, Decreased Breath Sounds Cardiovascular: No Edema, No Gallop, No JVD, No Murmur, Normal Peripheral Pulses, Irregularly Irregular, Tachycardia Capillary Refill: Less Than 3 Seconds Extremity: Normal Capillary Refill, Normal Inspection, Normal Range of Motion, Non Tender, No Calf Tenderness, No Pedal Edema Neurologic/Psychiatric: Alert, Oriented x3, Normal Mood/Affect, learning developer II-XII Norm as Tested, Motor Weakness (generalized weakness) Skin: Normal Color, Warm/Dry Lymphatic: No Adenopathy Results Lab Laboratory Tests 12/02/22 03:40 12/03/22 03:15 Assessment/Plan Assessment/Plan 1 JACQUES GANDARA MD Dec 03, 2022 10:40
[2022-12-03] MEDS ORDERED: HOLD METFORMIN - RECEIVED CONTRAST 20 ML VIAL IV SCH (11:30)
[2022-12-03] MEDS ORDERED: NS 100 ML (IVPB) BAG IV ONE (11:30)
[2022-12-03] MEDS ORDERED: IOHEXOL 350 MG/ML 100 ML (OMNIPAQUE 350) VIAL IV ONE (11:30)
--- NOTE | 2022-12-03 12:13 | Diagnostic Imaging Report ---
PROCEDURE: CT angiography Chest. TECHNIQUE: After intravenous administration of contrast, thin section axial CT angiography of the chest was performed. 3D MIP reconstructions were made. All CT scans use one or more of the following dose optimizing techniques: Automated exposure control, MA and/or KvP adjustment based on a patient size and exam type, or iterative reconstruction. INDICATION: Pneumonia. COMPARISON: Chest radiograph of 12/03/2022. FINDINGS: Vasculature: No pulmonary emboli. No CT evidence of pulmonary hypertension or right ventricular strain. Thoracic aorta is normal in caliber. No aortic dissection or pseudoaneurysm. Heart and mediastinum: Visualized thyroid is normal. No supraclavicular or axillary lymphadenopathy. There are numerous borderline enlarged mediastinal and hilar lymph nodes that are likely reactive in nature. Cardiomegaly without pericardial effusion. Pleura: Trace bilateral pleural effusions. No pneumothorax. Lungs and airway: No endoluminal lesion in the trachea or central bronchi. Consolidations with air bronchograms are present in the lingula and left lower lobe. Subpleural opacities and some mild septal thickening are noted in the right lung base. Upper abdomen: Low-attenuation 2.2 cm left adrenal nodule is likely a benign adenoma, but that cannot be confirmed on this exam. Musculoskeletal: Lucent focus within the T9 vertebral body likely a hemangioma. IMPRESSION: 1. No pulmonary emboli or acute aortic syndrome. 2. Left greater than right basilar pulmonary consolidations have a differential would include multifocal pneumonia or asymmetric pulmonary edema. 3. Trace bilateral pleural effusions. 4. Mildly enlarged mediastinal and hilar lymph nodes are likely reactive in nature due to the pulmonary pathology. 5. Low-attenuation left adrenal nodule is highly likely a benign adenoma. If deemed warranted, a follow-up outpatient/nonemergent CT abdomen without and with IV contrast per the adrenal protocol could be utilized to confirm. Dictated by: Dictated on workstation # [id number]
[2022-12-03] MEDS: GABAPENTIN 300 MG (NEURONTIN) CAP PO SCH (20:19)
[2022-12-04] MEDS: PIPERACILLIN SODIUM/TAZOBACTAM 4.5 GM in NS (IVPB) 100 ML IV SCH ×4 (00:06→23:14)
[2022-12-04 03:22] LABS: BASOPHILS % (AUTO) 0 % (0-10); EOSINOPHILS # (AUTO) 0.3 10^3/uL (0.0-0.3); EOSINOPHILS % (AUTO) 2 % (0-10); HEMATOCRIT 28 % (35-52); HEMOGLOBIN 8.5 g/dL (11.5-16.0); LYMPHOCYTES # (AUTO) 1.4 10^3/uL (1.0-4.0); LYMPHOCYTES % (AUTO) 10 % (12-44); MEAN CORPUSCULAR HEMOGLOBIN 26 pg (25-34); MEAN CORPUSCULAR HGB CONC 30 g/dL (32-36); MEAN CORPUSCULAR VOLUME 88 fL (80-99); MEAN PLATELET VOLUME 9.5 fL (9.0-12.2); MONOCYTES # (AUTO) 0.7 10^3/uL (0.0-1.0); MONOCYTES % (AUTO) 5 % (0-12); NEUTROPHILS % (AUTO) 79 % (42-75); PLATELET COUNT 367 10^3/uL (130-400)
[2022-12-04 03:43] LABS: ALBUMIN 2.4 GM/DL (3.2-4.5); BILIRUBIN,TOTAL 0.4 MG/DL (0.1-1.0); CALCIUM 8.4 MG/DL (8.5-10.1); CREATININE SERUM 0.75 MG/DL (0.60-1.30); MAGNESIUM 1.7 MG/DL (1.6-2.4); TOTAL PROTEIN 6.5 GM/DL (6.4-8.2)
[2022-12-04] MEDS: SUCRALFATE 1 GM (CARAFATE) TAB PO SCH ×4 (06:03→20:34)
[2022-12-04] MEDS: RT-ALBUTEROL SULF 2.5 MG/3 ML PRE-MIX VIAL INH SCH ×2 (07:17→14:28)
[2022-12-04] MEDS: LACTOBACILLUS ACIDOPHILUS (PROBIOTIC) CAPSULE PO SCH ×3 (08:03→17:31)
[2022-12-04] MEDS: FOLIC ACID 1 MG TAB PO SCH (08:04)
[2022-12-04] MEDS: meTOproloL SUCCINATE 50 MG (TOPROL XL) TAB PO SCH ×2 (08:04→20:34)
[2022-12-04] MEDS: FUROSEMIDE 20 MG (LASIX) TAB PO SCH (08:04)
[2022-12-04] MEDS: DOCUSATE SODIUM 100 MG (COLACE) CAP PO SCH ×2 (08:04→20:33)
[2022-12-04] MEDS: LACTULOSE SYRUP 10GM/15ML (ENULOSE) 30ML UDC PO SCH ×2 (08:04→20:33)
[2022-12-04] MEDS: SENNA W/DOCUSATE (SENOKOT S) TABLET PO SCH ×2 (08:04→20:33)
[2022-12-04] MEDS: PANTOPRAZOLE 40 MG (PROTONIX) TAB PO SCH ×2 (08:04→20:34)
[2022-12-04] MEDS: KCL 10 MEQ TAB (MICRO K) PO SCH (08:04)
[2022-12-04] MEDS: SENNOSIDES 8.6 MG (SENOKOT) TAB PO SCH ×2 (08:05→19:33)
--- NOTE | 2022-12-04 08:38 | Progress Note - Cardiology ---
Cardiology SOAP Progress Note Subjective: No cp or palp or syncope No shortness of breath at rest Malaise is improving No n/v/d Objective: I&O/Vital Signs 12/03/22 12/03/22 12/04/22 12/04/22 21:43 23:45 01:00 03:32 Temp 37.2 37.2 Pulse 71 Pulse Ox 95 O2 Delivery Nasal Cannula O2 Flow Rate 2.00 12/04/22 12/04/22 12/04/22 07:00 07:17 08:00 Temp 36.7 Pulse 68 74 Resp 16 B/P (MAP) 153/62 (92) Pulse Ox 96 93 O2 Delivery Nasal Cannula High Flow N/C O2 Flow Rate 1.00 1.50 12/04/22 00:00 Intake Total 1090 ml Output Total 1300 ml Balance -210 ml Constitutional: AAO x 3, well-developed, well-nourished Respiratory: No accessory muscle use, No respiratory distress; chest expansion is symmetric, chest is bilaterally symmetric, other (dyspneic with conversation; coarse breath sounds) Cardiovascular: irregularly irregular; No JVD; S1 and S2 Gastrointestional: No tender; soft; No guarding; audible bowel sounds Extremities: other (mod bilat LE swelling) Neurologic/Psychiatric: other (moves all limbs equally) Skin: No rash on exposed areas, No ulcerations on exposed areas Results/Procedures: Labs Laboratory Tests 12/04/22 03:10: White Blood Count 14.0H, Red Blood Count 3.23L, Hemoglobin 8.5L, Hematocrit 28L, Mean Corpuscular Volume 88, Mean Corpuscular Hemoglobin 26, Mean Corpuscular Hemoglobin Concent 30L, Red Cell Distribution Width 24.0H, Platelet Count 367, Mean Platelet Volume 9.5, Immature Granulocyte % (Auto) 5, Neutrophils (%) (Auto) 79H, Lymphocytes (%) (Auto) 10L, Monocytes (%) (Auto) 5, Eosinophils (%) (Auto) 2, Basophils (%) (Auto) 0, Neutrophils # (Auto) 11.0H, Lymphocytes # (Auto) 1.4, Monocytes # (Auto) 0.7, Eosinophils # (Auto) 0.3, Basophils # (Auto) 0.0, Immature Granulocyte # (Auto) 0.6H, Sodium Level 141, Potassium Level 4.0, Chloride Level 101, Carbon Dioxide Level 30, Anion Gap 10, Blood Urea Nitrogen 9, Creatinine 0.75, Estimat Glomerular Filtration Rate 80, BUN/Creatinine Ratio 12, Glucose Level 106H, Calcium Level 8.4L, Corrected Calcium 9.7, Magnesium Level 1.7, Total Bilirubin 0.4, Aspartate Amino Transf (AST/SGOT) 38H, Alanine Aminotransferase (ALT/SGPT) 31, Alkaline Phosphatase 66, Total Protein 6.5, Albumin 2.4L Laboratory Tests 12/03/22 03:15 12/04/22 03:10 A/P: Assessment: Newly dx PAF with intermittent RVR, currently rate controlled - first dx [place] [facility] [place] Pneumonia - management per medical services CHF, acute diastolic, currently clinically compensated - Echo on 12/01/22: LVEF 65-70%, mod enlargement of both atria, PASP 65-70 mmHg HTN Pulm HTN of undetermined etiology (see echo report of 12/01/22) HLD H/O GIB - GAVES syndrome - follows with Dr Ledesma of GI services in [place], [place] - cauterization approx 1 yr ago and again in June 2022 Marked anemia, ?GIB - managed by the Med svce H/O scleroderma - follows with Rheumatology in [place], [place] Plan: * Complex management due to multiple comorbities * Continue current regimen for vent rate control during PAF * We advise full OAC for stroke prophylaxis, however she has a h/o recurrent GIB's; we will leave the decision to Dr. Cesar who is the hospitalist providing her care * Continune diuretic therapy. Replace K * Management of pneumonia and pulm hypertension per Medical services. We also recommend a pulm consult to eval pulm htn: attending medical service to manage and arrange * Monitor lab closely * We recommend cardiac f/u post discharge. She understands and says that she sees Dr Tomlin in cardiac f/u in [place], [place] MANJU CAMPO MD FACP [facility] CCDS Dec 04, 2022 08:38
--- NOTE | 2022-12-04 08:49 | Occupational Therapy Eval ---
OT Evaluation-General/PLF Medical Diagnosis Admission Date Nov 30, 2022 at 21:19 Medical Diagnosis: new onset A fib, ARF, pneumonia Onset Date: Nov 30, 2022 Therapy Diagnosis Therapy Diagnosis: weakness Precautions Precautions/Isolations: Fall Prevention, Standard Precautions Weight Bear Status Weight Bearing Restriction: Full Weight Bearing Referral Referral Reason: Evaluation/Treatment Medical History Reviewed History: Yes Social History Home: [facility] Current Living Status: Spouse Entry Into Home: Stairs Without Railing Steps Into Home: 5 Steps Inside Home: 13 ADL-Prior Level of Function SCALE: Activities may be completed with or without assistive devices. 6-[id number] completes the activity by him/herself with no assistance from a helper. 5-Set-up or Clean-up Assistance-helper sets up or cleans up; patient completes activity. [place] assists only prior to or following the activity. 4-Supervision or Touching Assistance-helper provides verbal cues and/or touchi ng/steadying and/or contact guard assistance as patient completes activity. Assistance may be provided throughout the activity or intermittently. 3-Partial/Moderate Assistance-helper does LESS THAN HALF the effort. [place] lifts, holds or supports trunk or limbs, but provides less than half the effort. 2-Substantial/Maximal Assistance-helper does MORE THAN HALF the effort. [place] lifts or holds trunk or limbs and provides more than half the effort. 9-[id number]-[id number] does ALL the effort. Patient does none of the effort to complete the activity. Or, the assistance of 2 or more helpers is required for the patient to complete the activity. If activity was not attempted, code reason: 7-Patient Refused. 9-Not Applicable-not attempted and the patient did not perform the activity before the current illness, exacerbation or injury. 10-Not Attempted due to Environmental Limitations-(lack of equipment, weather restraints, etc.). 88-Not Attempted due to Medical Conditions or Safety Concerns. Self Care: Independent Functional Cognition: Independent DME/Equipment: Bath Bench (built in ), Shower DME/Equipment Comments Has a cane and walker at home but doesn't use them much Daughter is an Occupational Therapist in [place] other children live in [facility] and [facility] Self: Yes OT Current Status Subjective Resting comfortable in bed with mild cough, eating breakfast Pain Numeric Pain Scale: 0-No Pain Mental Status/Objective Patient Orientation: Person, Place, Time, Situation Attachments: Quevedo Catheter, IV, Oxygen, SCD's, Telemetry Current Glasses/Contacts: Yes Hearing Aids: No Dentures/Partials: No Upper Extremity ROM BUE ROM/Strength and coordination WNLs Raised rash on back noted. Pt reports itching sensation ADL-Treatment Eating (QC): 6 Oral Hygiene (QC): 5 Shower/Bathe Self (QC): 88 (RASH on back) Upper Body Dressing (QC): 4 Lower Body Dressing (QC): 4 On/Off Footwear (QC): 2 Toileting Hygiene (QC): 4 Education OT Patient Education: Correct positioning, Energy conservation, Modified ADL techniques, Progress toward Goal/Update tx plan, Purpose of tx/functional activities, Reviewed precautions, Rehab process, Safety issues, Transfer techniques Teaching Recipient: Patient Teaching Methods: Demonstration, Discussion Response to Teaching: Verbalize Understanding, Reinforcement Needed OT [employer] Member Goals Skilled Nursing Goals Oral Hygiene (QC): 6 Toileting Hygiene (QC): 6 Shower/Bathe Self (QC): 6 Upper Body Dressing (QC): 6 Lower Body Dressing (QC): 6 On/Off Footwear (QC): 6 1=Demonstrate adherence to instructed precautions during ADL tasks. 2=Patient will verbalize/demonstrate understanding of assistive devices/modifications for ADL. 3=Patient will improve strength/tolerance for activity to enable patient to perform ADL's. OT Education/Plan Problem List/Assessment Assessment: Decreased Activ Tolerance, Impaired Funct Balance, Impaired Self- Care Skills Discharge Recommendations Plan/Recommendations: Continue POC Treatment Plan/Plan of Care Treatment,Training & Education: Yes Patient would benefit from OT for education, treatment and training to promote independence in ADL's, mobility, safety and/or upper extremity function for ADL's. Plan of Care: ADL Retraining, Functional Mobility, UE Funct Exercise/Act Treatment Duration: Dec 12, 2022 Frequency: 5 times per week Estimated Hrs Per Day: .25 hour per day Agreement: Yes Rehab Potential: Good Time Start Time: 08:40 Stop Time: 09:05 DATE: Dec 04, 2022 Total Time Billed (hr/min): 25 Billed Treatment Time 1 visit EVM 1, ADL 1 25 min GRAHAM MCCARTNEY OT Dec 04, 2022 08:49
--- NOTE | 2022-12-04 12:42 | Progress Note ---
MIKKI LAN 12/04/22 1242: Subjective Date Seen by a Provider: Dec 04, 2022 Time Seen by a Provider: 09:15 Subjective/Events-last exam Pt is doing well this AM. She is sitting up in recliner, is at bedside with her. She reports she is getting up more, feeling less SOB. She reports a new rash on her back that has been itching. She denies CP, palpitations or difficulty breathing. She had one BM yesterday and is making good urine via patel. She says she isn't very hungry and has been trying to eat but it isn't going well but she feels this is mostly because she is in the hospital and just doesn't have an appetite. Objective Exam Last Set of Vital Signs Vital Signs Date Time Temp Pulse Resp B/P (MAP) Pulse Ox O2 Delivery O2 Flow Rate FiO2 12/04/22 08:00 36.7 74 16 153/62 (92) 93 High Flow N/C 1.50 12/03/22 13:03 21 Capillary Refill : Less Than 3 Seconds I&O Intake and Output 12/04/22 00:00 Intake Total 1740 ml Output Total 2650 ml Balance -910 ml Intake Oral 1440 ml IV Total 300 ml Output Urine Total 2650 ml # Bowel Movements 1 General: Alert, Oriented X3, No Acute Distress HEENT: PERRLA, EOMI Neck: Supple, No JVD Lungs: Other (Fine inspiratory crackles in lower lung lobes. Upper lobes have i mproved air movement today.) Heart: Regular Rate, Normal S1, Normal S2, Other (Patient is in sinus rhythm at this exam.) Abdomen: Normal Bowel Sounds, Soft, No Tenderness Extremities: No Clubbing, No Edema Skin: Other (Diffuse maculopapular rash across back. It blanches upon pressure. Some lesions appear to have clear vesicles. ) Neuro: Normal Speech Psych/Mental Status: Mental Status NL, Mood NL Results Lab Laboratory Tests 12/04/22 03:10: White Blood Count 14.0H, Red Blood Count 3.23L, Hemoglobin 8.5L, Hematocrit 28L, Mean Corpuscular Volume 88, Mean Corpuscular Hemoglobin 26, Mean Corpuscular Hemoglobin Concent 30L, Red Cell Distribution Width 24.0H, Platelet Count 367, Mean Platelet Volume 9.5, Immature Granulocyte % (Auto) 5, Neutrophils (%) (Auto) 79H, Lymphocytes (%) (Auto) 10L, Monocytes (%) (Auto) 5, Eosinophils (%) (Auto) 2, Basophils (%) (Auto) 0, Neutrophils # (Auto) 11.0H, Lymphocytes # (Auto) 1.4, Monocytes # (Auto) 0.7, Eosinophils # (Auto) 0.3, Basophils # (Auto) 0.0, Immature Granulocyte # (Auto) 0.6H, Sodium Level 141, Potassium Level 4.0, Chloride Level 101, Carbon Dioxide Level 30, Anion Gap 10, Blood Urea Nitrogen 9, Creatinine 0.75, Estimat Glomerular Filtration Rate 80, BUN/Creatinine Ratio 12, Glucose Level 106H, Calcium Level 8.4L, Corrected Calcium 9.7, Magnesium Level 1.7, Total Bilirubin 0.4, Aspartate Amino Transf (AST/SGOT) 38H, Alanine Aminotransferase (ALT/SGPT) 31, Alkaline Phosphatase 66, Total Protein 6.5, Albumin 2.4L Radiology No new imaging to report as of 12/04/22. 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 - On Vancomycin q12 hr (last dose 12/02) and on Zosyn q8hr; - Echo from 12/01 showing Pulmonary artery systolic pressures in 60s-70s - Incentive spirometry at bedside; Albuterol PRN - WBC 21.7 -> 19.8 -> 17.3 -> 15.4 --> 14.0 (12/04) - ABG on admission 7.39/46/56/28, -> 7.38/54/75/32 -> 7.4/56/83/34 (3/2) - continuing to show compensated respiratory acidosis. - Vital signs stable this AM. -Satting 99-100% on 3L N.C. at bedside but desatting with any exertion. Could work toward weaning O2 at rest. -CTA suggestive of multifocal pneumonia vs asymmetric pulmonary edema and trace bilateral pleural effusions on 12/03 2) New onset A-Fib with intermittent RVR Pulmonary Hypertension Congestive heart failure - Consult to Cardiology, appreciate recommendations -Started diltiazem 240mg daily PO -Added diltiazem drip 5mg/hr on 12/01 for uncontrolled rate for 24 hrs - DC'd last 12/02 -Added metoprolol 50mg BID -Has had no additional episodes of tachycardia/RVR since 12/01. -HR has been well-controlled. No PRNs needed overnight; In sinus rhythm upon exam today. 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 Will refer to pulmonology. -On Lasix 20mg PO daily - Vital signs stable. 3) Chronic GI Bleeding 11/05 Watermelon Stomach -On sucralfate and protonix at home, will continue - Hgb stable. -Will hold A-fib CVA prophylaxis due to recent bleeds and need for transfusions -Hemoccult positive yesterday; matches with chronic GI bleeding 3) FEN/GI - No fluids at this time - PO K+ daily, levels on CMP this AM WNL. - Regular Diet; encouraged intake - Senna/docusate/lactulose/PEG for bowel regimen, Zofran PRN, Protonix and sucralfate, lactobacillus. - Urine output continuing to be good 1.3 ml/kg/hr (patel in place) will DC patel today as patient is more ambulatory. Dispo: Stable. Off diltiazem drip since 12/02. Will begin working on placement for rehab and PT/OT. Clinical Quality Measures DVT/VTE Risk/Contraindication: Contraindications-Pharm: Other *list below* Other: watermelon stomach with GIB VICKY ANGEL DO 12/05/22 0538: Supervisory-Addendum Brief Verification & Attestation Participated in pt care: history, MDM, physical Personally performed: exam, history, MDM, supervision of care Care discussed with: Medical Student Procedures: n/a Results interpretation: Verified all documentation Verification and Attestation of Medical Student E/M Service A medical student performed and documented this service in my presence. I reviewed and verified all information documented by the medical student and made modifications to such information, when appropriate. I personally performed the physical exam and medical decision making. Vicky Angel, Dec 05, 2022,05:38 MIKKI LAN Dec 04, 2022 12:42 VICKY ANGEL DO Dec 05, 2022 05:38
[2022-12-04] MEDS: HYDROCORTISONE 1% CREAM 30 GM TUBE TOP SCH ×2 (13:04→20:35)
--- NOTE | 2022-12-04 13:10 | Physical Therapy Evaluation ---
PT Evaluation-General Medical Diagnosis Admission Date Nov 30, 2022 at 21:19 Medical Diagnosis: new onset A fib, ARF, pneumonia Onset Date: Nov 30, 2022 Therapy Diagnosis Therapy Diagnosis: Gait Deficit, strength deficit Precautions Precautions/Isolations: Fall Prevention, Standard Precautions Weight Bear Status Right Lower Extremity: Right Full Weight Bearing Left Lower Extremity: Left Full Weight Bearing Referral Physician: Dr. Cesar Reason for Referral: Evaluation/Treatment Medical History Reviewed History: Yes Social History Home: Multilevel Current Living Status: Spouse Entry Into Home: Stairs Without Railing PT Steps Into Home: 5 PT Steps Inside Home: 13 Prior Prior Level of Function SCALE: Activities may be completed with or without assistive devices. 5-Merxybmoqw-ohknzlz completes the activity by him/herself with no assistance from a helper. 5-Set-up or Clean-up Assistance-helper sets up or cleans up; patient completes activity. [place] assists only prior to or following the activity. 4-Supervision or Touching Assistance-helper provides verbal cues and/or touching/steadying and/or contact guard assistance as patient completes activity. Assistance may be provided throughout the activity or intermittently. 3-Partial/Moderate Assistance-helper does LESS THAN HALF the effort. [place] l ifts, holds or supports trunk or limbs, but provides less than half the effort. 2-Substantial/Maximal Assistance-helper does MORE THAN HALF the effort. [place] lifts or holds trunk or limbs and provides more than half the effort. 8-Utgetklxv-egfoxu does ALL the effort. Patient does none of the effort to complete the activity. Or, the assistance of 2 or more helpers is required for t he patient to complete the activity. If activity was not attempted, code reason: 7-Patient Refused. 9-Not Applicable-not attempted and the patient did not perform the activity before the current illness, exacerbation or injury. 10-Not Attempted due to Environmental Limitations-(lack of equipment, weather restraints, etc.). 88-Not Attempted due to Medical Conditions or Safety Concerns. Bed Mobility: 6 Transfers (B,C,W/C): 6 Gait: 6 Stairs: 6 Indoor Mobility (Ambulation): Independent Stairs: Independent Prior Devices Use: Walker Prior Device Use: Cane PT Evaluation-Current Subjective Patient lying supine in bed upon PT arrival, agreeable to treatment. Patient rates pain currently at 0/10. Objective Patient Orientation: Person, Place, Time, Situation Attachments: Oxygen, [place] Catheter, IV ROM/Strength ROM Lower Extremities WFLs bilaterally all planes Strength Lower Extremities 3+/5 bilaterally all planes Sensory Vision: Functional Hearing: Functional Sensation Right Lower Extremit: Intact Sensation Left Lower Extremity: Intact Transfers Roll Left to Right (QC): 3 Sit to Lying (QC): 3 Lying to Sitting/Side of Bed(Q: 3 Sit to Stand (QC): 3 Chair/Mso-pt-Lmeax Xfer(QC): 3 Gait Does the Patient Walk?: Yes Mode of Locomotion: Walk Anticipated Mode of Locomotion: Walk Walk 10 feet (QC): 4 Walk 50 ft with 2 Turns(QC): 3 Distance: 100 feet Gait Assistive Device: FWW Balance Sitting Static: Good Sitting Dynamic: Good Standing Static: Fair Standing Dynamic: Fair Assessment/Needs Patient tolerated treatment fair. Patient demonstrates min A with all observed bed mobility and transfers. Patient ambulates 100 feet with FWW, with CGA/Min A. Patient ambulates with mildly narrow BERTHA, shortened stride length bi laterally, rounded shoulders, and an accentuated thoracic kyphosis. Patient on 1 L O2 prior to treatment. Gait training performed sans O2 and upon return to chair O2 sats were 87%. Upon donning nasal cannula, sats increased to 93% while sitting. Patient in chair post treatment with all needs met, nursing notified, call light in reach. Rehab Potential: Fair PT Fdc Goals Fdc Goals PT Fdc Goals Time Frame: Jan 01, 2023 Roll Left & Right (QC): 6 Sit to Lying (QC): 6 Lying-Sitting on Side/Bed(QC): 6 Sit to Stand (QC): 6 Chair/Bke-up-Vmdmq Xfer(QC): 6 Toilet Transfer (QC): 6 Does the Patient Walk: Yes Walk 10 feet (QC): 6 Walk 50ft with 2 Turns (QC): 6 Walk 150 ft (QC): 6 1 Step (curb) (QC): 4 4 Steps (QC): 4 PT Plan Problem List Problem List: Activity Tolerance, Functional Strength, Safety, Balance, Gait, Transfer, Bed Mobility, ROM Treatment/Plan Treatment Plan: Continue Plan of Care Treatment Plan: Bed Mobility, Education, Functional Activity Sarita, Functional Strength, Group Therapy, Gait, Safety, Therapeutic Exercise, Transfers Treatment Duration: Jan 01, 2023 Frequency: 6 times per week Estimated Hrs Per Day: .25 hour per day Patient and/or Family Agrees t: Yes Safety Risks/Education Patient Education: Gait Training, Transfer Techniques Teaching Recipient: Patient, Family Teaching Methods: Demonstration, Discussion Response to Teaching: Verbalize Understanding, Return Demonstration Time Time In: 1024 Time Out: 1049 DATE: Dec 04, 2022 Total Billed Treatment Time: 25 Total Billed Treatment Visit, BUFFY ROUSE JOHN A PT Dec 04, 2022 13:10
[2022-12-04 16:46] VITALS: BP 150/67
[2022-12-04 19:42] VITALS: BP 138/66
[2022-12-04] MEDS: GABAPENTIN 300 MG (NEURONTIN) CAP PO SCH (20:34)
[2022-12-05 00:19] VITALS: BP 154/63
[2022-12-05 04:01] VITALS: BP 155/72
[2022-12-05] MEDS: SUCRALFATE 1 GM (CARAFATE) TAB PO SCH ×2 (06:39→12:39)
[2022-12-05] MEDS: KCL 10 MEQ TAB (MICRO K) PO SCH (06:39)
[2022-12-05] MEDS: PIPERACILLIN SODIUM/TAZOBACTAM 4.5 GM in NS (IVPB) 100 ML IV SCH (06:41)
[2022-12-05 06:51] LABS: BASOPHILS # (AUTO) 0.1 10^3/uL (0.0-0.1); BASOPHILS % (AUTO) 1 % (0-10); EOSINOPHILS # (AUTO) 0.2 10^3/uL (0.0-0.3); EOSINOPHILS % (AUTO) 2 % (0-10); HEMATOCRIT 29 % (35-52); HEMOGLOBIN 8.8 g/dL (11.5-16.0); LYMPHOCYTES % (AUTO) 8 % (12-44); MEAN CORPUSCULAR HEMOGLOBIN 26 pg (25-34); MEAN CORPUSCULAR HGB CONC 30 g/dL (32-36); MEAN CORPUSCULAR VOLUME 88 fL (80-99); MEAN PLATELET VOLUME 9.2 fL (9.0-12.2); MONOCYTES # (AUTO) 0.6 10^3/uL (0.0-1.0); MONOCYTES % (AUTO) 5 % (0-12); NEUTROPHILS # (AUTO) 9.6 10^3/uL (1.8-7.8); NEUTROPHILS % (AUTO) 82 % (42-75); PLATELET COUNT 385 10^3/uL (130-400); WHITE BLOOD COUNT 11.7 10^3/uL (4.3-11.0)
[2022-12-05] MEDS ORDERED: CYANOCOBALAMIN 1,000 MCG (VITAMIN B-12) TABLET PO SCH (07:00)
[2022-12-05 07:02] LABS: ALBUMIN 2.7 GM/DL (3.2-4.5)
[2022-12-05 07:03] LABS: POTASSIUM 3.8 MMOL/L (3.6-5.0)
[2022-12-05 07:04] LABS: CALCIUM 8.3 MG/DL (8.5-10.1)
[2022-12-05 07:05] LABS: TOTAL PROTEIN 6.5 GM/DL (6.4-8.2)
[2022-12-05 07:07] LABS: BILIRUBIN,TOTAL 0.3 MG/DL (0.1-1.0)
[2022-12-05 07:09] LABS: CREATININE SERUM 0.74 MG/DL (0.60-1.30)
[2022-12-05 07:11] LABS: MAGNESIUM 1.8 MG/DL (1.6-2.4)
--- NOTE | 2022-12-05 07:33 | Progress Note ---
Subjective Date Seen by a Provider: Dec 05, 2022 Time Seen by a Provider: 11:00 Objective Exam Last Set of Vital Signs Vital Signs Date Time Temp Pulse Resp B/P (MAP) Pulse Ox O2 Delivery O2 Flow Rate FiO2 12/05/22 04:01 37.1 79 18 155/72 (99) 94 Nasal Cannula 1.00 12/04/22 18:28 21 Capillary Refill : Less Than 3 Seconds I&O Intake and Output 12/05/22 00:00 Intake Total 1230 ml Output Total 2150 ml Balance -920 ml Intake Oral 1030 ml IV Total 200 ml Output Urine Total 2150 ml # Voids 2 # Bowel Movements 1 Results Lab Laboratory Tests 12/05/22 06:38: White Blood Count 11.7H, Red Blood Count 3.33L, Hemoglobin 8.8L, Hematocrit 29L, Mean Corpuscular Volume 88, Mean Corpuscular Hemoglobin 26, Mean Corpuscular He moglobin Concent 30L, Red Cell Distribution Width 23.9H, Platelet Count 385, Mean Platelet Volume 9.2, Immature Granulocyte % (Auto) 2, Neutrophils (%) (Auto) 82H, Lymphocytes (%) (Auto) 8L, Monocytes (%) (Auto) 5, Eosinophils (%) (Auto) 2, Basophils (%) (Auto) 1, Neutrophils # (Auto) 9.6H, Lymphocytes # (Auto) 1.0, Monocytes # (Auto) 0.6, Eosinophils # (Auto) 0.2, Basophils # (Auto) 0.1, Immature Granulocyte # (Auto) 0.3H, Sodium Level 140, Potassium Level 3.8, Chloride Level 101, Carbon Dioxide Level 30, Anion Gap 9, Blood Urea Nitrogen 9, Creatinine 0.74, Estimat Glomerular Filtration Rate 82, BUN/Creatinine Ratio 12, Glucose Level 111H, Calcium Level 8.3L, Corrected Calcium 9.3, Magnesium Level 1.8, Total Bilirubin 0.3, Aspartate Amino Transf (AST/SGOT) 38H, Alanine Aminotransferase (ALT/SGPT) 30, Alkaline Phosphatase 68, Total Protein 6.5, Albumin 2.7L Assessment/Plan Assessment/Plan Assess & Plan/Chief Complaint Clinical Quality Measures DVT/VTE Risk/Contraindication: Contraindications-Pharm: Other *list below* Other: watermelon stomach with GIB CHRISTINE ANGEL DO Dec 05, 2022 07:33
[2022-12-05] MEDS ORDERED: RT-ALBUTEROL SULF 2.5 MG/3 ML PRE-MIX VIAL INH SCH (08:00)
[2022-12-05 08:27] VITALS: BP 168/72
[2022-12-05] MEDS ORDERED: CALCIUM CARB + VIT D 600 MG (CALCARB + D) TAB PO SCH (09:00)
[2022-12-05] MEDS ORDERED: FOLIC ACID 1 MG TAB PO SCH (09:00)
[2022-12-05] MEDS ORDERED: OMEGA 3 (FISH OIL) 1000 MG CAP PO SCH (09:00)
[2022-12-05] MEDS: LACTOBACILLUS ACIDOPHILUS (PROBIOTIC) CAPSULE PO SCH ×2 (09:02→12:39)
[2022-12-05] MEDS: meTOproloL SUCCINATE 50 MG (TOPROL XL) TAB PO SCH (09:02)
[2022-12-05] MEDS: SENNA W/DOCUSATE (SENOKOT S) TABLET PO SCH (09:02)
[2022-12-05] MEDS: SENNOSIDES 8.6 MG (SENOKOT) TAB PO SCH (09:03)
[2022-12-05] MEDS: FUROSEMIDE 20 MG (LASIX) TAB PO SCH (09:04)
[2022-12-05] MEDS: PANTOPRAZOLE 40 MG (PROTONIX) TAB PO SCH (09:04)
[2022-12-05] MEDS: DOCUSATE SODIUM 100 MG (COLACE) CAP PO SCH (09:04)
[2022-12-05] MEDS: IRON SUCROSE 200 MG/10 ML (VENOFER) VIAL IV SCH (09:05)
[2022-12-05] MEDS: LACTULOSE SYRUP 10GM/15ML (ENULOSE) 30ML UDC PO SCH (09:05)
[2022-12-05] MEDS: HYDROCORTISONE 1% CREAM 30 GM TUBE TOP SCH (09:11)
--- NOTE | 2022-12-05 10:51 | Cardiology Progress Note ---
Subjective Date Seen by Provider: Dec 05, 2022 Time Seen by Provider: 10:48 Subjective/Events-last exam Patient was seen at bedside, sitting comfortably Concern with her about her elevated blood pressure Review of Systems General: No Chills, No Night Sweats, No Fatigue, No Malaise, No Appetite, No Other HEENT: No Head Aches, No Visual Changes, No Eye Pain, No Ear Pain, No Dysphasia, No Sinus Congestion, No Post Nasal Drip, No Sore Throat, No Other Pulmonary: Dyspnea; No Cough, No Pleuritic Chest Pain, No Other Cardiovascular: No: Chest Pain, Palpitations, Orthopnea, Paroxysmal Noc. Dyspnea, Edema, Lt Headedness, Other Objective-Cardiology Exam Last Set of Vital Signs Vital Signs 12/04/22 12/05/22 18:28 08:27 Temp 37.0 Pulse 76 Resp 18 B/P (MAP) 168/72 (104) Pulse Ox 90 O2 Delivery Nasal Cannula O2 Flow Rate 0.75 FiO2 21 I&O Intake and Output 12/05/22 00:00 Intake Total 1230 ml Output Total 2150 ml Balance -920 ml Intake Oral 1030 ml IV Total 200 ml Output Urine Total 2150 ml # Voids 2 # Bowel Movements 1 General: Alert, Oriented X3, No Acute Distress HEENT: PERRLA, EOMI Neck: Supple, No JVD Lungs: Other (Fine inspiratory crackles in lower lung lobes. Upper lobes have improved air movement today.) Heart: Regular Rate, Normal S1, Normal S2, Other (Patient is in sinus rhythm at this exam.) Abdomen: Normal Bowel Sounds, Soft, No Tenderness Extremities: No Clubbing, No Edema Skin: Other (Diffuse maculopapular rash across back. It blanches upon pressure. Some lesions appear to have clear vesicles. ) Neuro: Normal Speech Psych/Mental Status: Mental Status NL, Mood NL Results Lab Laboratory Tests 12/05/22 06:38 A/P-Cardiology Admission Diagnosis Paroxysmal atrial fibrillation Hypertension Pneumonia Hyperlipidemia Assessment/Plan Paroxysmal atrial fibrillation, new onset Rate is controlled, transferred from [facility] on November 30 Continue to monitor Hypertension, poor control. Maintained on Cardizem CD 240 mg daily, metoprolol 50 mg I will add losartan 50 mg and evaluate tolerance and response Pneumonia, managed by medical team Congestive heart failure, acute left ventricular diastolic dysfunction, compensated Echocardiogram done on December 01, 2022 with a EF 65 to 70%, biatrial enlargement, PA pressure 65 to 70 mmHg Pulmonary hypertension Hyperlipidemia History of GI bleed with follow-up with Dr. Ledesma. History of anemia Scleroderma followed with rheumatology. FRANKO YOON MD Dec 05, 2022 10:51
[2022-12-05] MEDS ORDERED: LOSARTAN 50 MG (COZAAR) TAB PO SCH (11:00)
[2022-12-05 11:53] VITALS: BP 146/66
[2022-12-05] MEDS ORDERED: SUCR1TAB PO (12:09)
[2022-12-05] MEDS ORDERED: HYDR453. TOP (12:09)
[2022-12-05] MEDS ORDERED: METO50TA7 PO (12:09)
[2022-12-05] MEDS ORDERED: FURO20TA4 PO (12:09)
[2022-12-05] MEDS ORDERED: PANT40TA52 PO (12:09)
[2022-12-05] MEDS ORDERED: POTA-160 PO (12:09)
[2022-12-05] MEDS ORDERED: DILT240C91 PO (12:09)
[2022-12-05] MEDS ORDERED: ALBU2.5V4 INH ×2 (12:09)
[2022-12-05] MEDS ORDERED: LOSA50TA63 PO (12:09)
[2022-12-05] MEDS ORDERED: LACT1CAP7 PO (12:09)
[2022-12-05] MEDS ORDERED: IRON100V2 IV (12:09)
--- NOTE | 2022-12-05 12:10 | Discharge Inst-Skilled Nursing ---
Discharge Inst-Skilled NF Reconcile Patient Problems Problems Reviewed?: Yes Chief Complaint CC: Acute respiratory failure due to pneumonia and new onset AF with volume overload HPI: This is an 82yoWF clinic patient of Dr Batista who also sees Dr Thornton Cardiology in [place], Dr Ledesma Gastroenterology in [place], and Dr Bustamante Hematology in [place] and Dr Ortega Rheumatology who presents as a [place] [facility] [place] level of care due to worsened respiratory status and new onset AF. ECHO prelim revealed EF 51%. Patient has scleroderma and is managed by Dr Ortega but is not on any immunusuppression only takes Ultram. She has a h/o watermelon stomach and has received multiple doses of IV iron and this hospital admit she received blood transfusions. She is currently on non- rebreather mask and appears to be comfortable but appears to be very complicated with temporal wasting. at bedside. Catheter is in place and patient maintained on Vanc and Zosyn since admit Wednesday night. Patient Instructions Patient Problems: PNA PHTN Consult/Follow Up/Orders Follow Up Appt.: Dr Batista Skilled NF Admit to: [facility] Certification (SNF) I certify that SNF services are required to be given on an inpatient basis because of the above named patient's need for care home care on a continuing basis for the conditions(s) for which he/she was receiving inpatient hospital services prior to his/her transfer to the SNF. Intermediate Facility Order: Nursing Services, Modeling Analyst-Evaluate & Treat, Physical Therapy-Evaluate & Treat Oxygen Delivery Method: Nasal Cannula Discharge Diet: No Restrictions Daily Activity as Tolerated: Yes Resuscitation Status: Full Code New & Resume Previous Orders New Medications: Albuterol Sulfate (Albuterol Sulfate) 2.5 Mg/3 Ml (0.083 %) Vial.neb 2.5 MG INH RTBID for 7 Days, INHALER Albuterol Sulfate (Albuterol Sulfate) 2.5 Mg/3 Ml (0.083 %) Vial.neb 2.5 MG INH RTQ4HR PRN for SOA for 7 Days, INHALER Diltiazem HCl (Diltiazem 24Hr ER) 240 Mg Cap.er.24h 240 MG PO DAILY for 30 Days, CAP Furosemide (Furosemide) 20 Mg Tablet 20 MG PO DAILY for 30 Days, TAB Hydrocortisone (Hydrocortisone) 1 % Cream..g. 0 GM TOP BID for 7 Days, TUBE bid Iron Sucrose Complex (Venofer) 200 Mg Iron/10 Ml Vial 200 MG IV Q48H@09 for 3 Days, VIAL Lactobacillus Acidophilus/Pect (Acidophilus-Pectin Capsule) 75 Million Cell-100 Mg Capsule 2 EACH PO TIDWM for 7 Days, CAP Losartan Potassium (Losartan Potassium) 50 Mg Tablet 50 MG PO DAILY for 30 Days, TAB Metoprolol Succinate (Metoprolol Succinate) 50 Mg Tab.er.24h 50 MG PO BID for 30 Days, TAB Pantoprazole Sodium (Pantoprazole Sodium) 40 Mg Tablet.dr 40 MG PO BID for 30 Days, TAB Potassium Chloride (Klor-Con 10) 10 Meq Tablet.er 10 MEQ PO DAILY@0700 for 7 Days, TAB Sucralfate (Sucralfate) 1 Gram Tablet 1 GM PO ACHS for 30 Days, TAB Continued Medications: Amlodipine Besylate (Amlodipine Besylate) 5 Mg Tablet 5 MG PO DAILY, TAB Calcium Carbonate/Vitamin D3 (Calcium + Vitamin D Tablet) 600 Mg Calcium-5 Mcg (200 Unit) Tablet 1 EACH PO DAILY, TAB Cyanocobalamin (Vitamin B-12) (Vitamin B-12) 500 Mcg Tablet 500 MCG PO DAILY, TAB Fish Oil/Dha/Epa (Fish Oil 1,200 mg Fish Oil) 1,200 Mg-144 Mg-216 Mg Capsule 1 EACH PO DAILY, CAP Folic Acid (Folic Acid) 1 Mg Tablet 1 MG PO DAILY, TAB Gabapentin (Neurontin) 300 Mg Capsule 300 MG PO HS, CAP Tramadol HCl (Tramadol HCl) 50 Mg Tablet 50-100 MG PO Q6H PRN for PAIN-MODERATE (5-7), TAB TAKES 1 TO 2 (50MG) TABS Discontinued Medications: Metoprolol Succinate (Metoprolol Succinate) 50 Mg Tab.er.24h 50 MG PO DAILY, TAB Pantoprazole Sodium (Pantoprazole Sodium) 40 Mg Tablet.dr 40 MG PO DAILY, TAB Sucralfate (Sucralfate) 1 Gram Tablet 1 GM PO BIDAC, TAB Vicky Angel Dec 05, 2022 12:10 VICKY ANGEL DO Dec 05, 2022 12:10
--- NOTE | 2022-12-05 12:11 | Discharge Summary ---
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 - On Vancomycin q12 hr (last dose 12/02) and on Zosyn q8hr; - Echo from 12/01 showing Pulmonary artery systolic pressures in 60s-70s - Incentive spirometry at bedside; Albuterol PRN - WBC 21.7 -> 19.8 -> 17.3 -> 15.4 --> 14.0 (12/04) - ABG on admission 7.39/46/56/28, -> 7.38/54/75/32 -> 7.4/56/83/34 (12/03) - continuing to show compensated respiratory acidosis. - Vital signs stable this AM. -Satting 99-100% on 3L [place] at bedside but desatting with any exertion. Could work toward weaning O2 at rest. -CTA suggestive of multifocal pneumonia vs asymmetric pulmonary edema and trace bilateral pleural effusions on 12/03 2) New onset A-Fib with intermittent RVR Pulmonary Hypertension Congestive heart failure - Consult to Cardiology, appreciate recommendations -Started diltiazem 240mg daily PO -Added diltiazem drip 5mg/hr on 12/01 for uncontrolled rate for 24 hrs - DC'd last 12/02 -Added metoprolol 50mg BID -Has had no additional episodes of tachycardia/RVR since 12/01. -HR has been well-controlled. No PRNs needed overnight; In sinus rhythm upon exam today. 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 Will refer to pulmonology. -On Lasix 20mg PO daily - Vital signs stable. 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 -Will hold A-fib CVA prophylaxis due to recent bleeds and need for transfusions -Hemoccult positive yesterday; matches with chronic GI bleeding 3) FEN/GI - No fluids at this time - PO K+ daily, levels on CMP this AM WNL. - Regular Diet; encouraged intake - Senna/docusate/lactulose/PEG for bowel regimen, Zofran PRN, Protonix and sucralfate, lactobacillus. - Urine output continuing to be good 1.3 ml/kg/hr (patel in place) will DC patel today as patient is more ambulatory. Dispo: Stable. Off diltiazem drip since 12/02. Will begin working on placement for rehab and PT/OT. Discharge Summary Discharge Physical Examination Allergies: Coded Allergies: No Known Drug Allergies (Unverified , 11/30/22) Vitals & I&Os Vital Signs Date Time Temp Pulse Resp B/P (MAP) Pulse Ox O2 Delivery O2 Flow Rate FiO2 12/05/22 15:23 36.6 79 18 146/66 94 Nasal Cannula 0.75 12/04/22 18:28 21 General Appearance: Alert, Oriented X3, Cooperative Respiratory: Clear to Auscultation Cardiovascular: Regular Rate Psych/Mental Status: Mental Status NL Hospital Course Was the Problem List Reviewed?: Yes Standard hospital course fater she was moved [place] [facility] [place] higher level of care due to acute hypoxic respiratory failure from PNA and new onset AF and volume overload. Cardioology managed the AF with ECHO evaluation revealing PHTN of 65. CTA negative for PE. OAC was not initiated due to hemoccult + stools and watermelon stomach hx managed by Dr Ledesma. Abx finished prior to move to [facility] [place] . Labs remained stable and did not require any transfusions. Rate control of AF was successful. SB needed to increase strength. Labs (last 24 hrs) Laboratory Tests 11/30/22 22:07: White Blood Count 21.7H, Red Blood Count 3.12L, Hemoglobin 8.3L, Hematocrit 27L, Mean Corpuscular Volume 86, Mean Corpuscular Hemoglobin 27, Mean Corpuscular Hemoglobin Concent 31L, Red Cell Distribution Width 23.8H, Platelet Count 405H, Mean Platelet Volume 10.1, Immature Granulocyte % (Auto) 9, Neutrophils (%) (Auto) 81H, Lymphocytes (%) (Auto) 6L, Monocytes (%) (Auto) 4, Eosinophils (%) (Auto) 0, Basophils (%) (Auto) 0, Neutrophils # (Auto) 17.6H, Lymphocytes # (Auto) 1.2, Monocytes # (Auto) 0.9, Eosinophils # (Auto) 0.1, Basophils # (Auto) 0.1, Immature Granulocyte # (Auto) 1.9H, Sodium Level 137, Potassium Level 3.7, Chloride Level 103, Carbon Dioxide Level 23, Anion Gap 11, Blood Urea Nitrogen 22H, Creatinine 0.78, Estimat Glomerular Filtration Rate 77, BUN/Creatinine Ratio 28, Glucose Level 134H, Lactic Acid Level 0.91, Calcium Level 8.0L, Cor rected Calcium 9.3, Iron Level 18L, Total Bilirubin 0.4, Aspartate Amino Transf (AST/SGOT) 32, Alanine Aminotransferase (ALT/SGPT) 32, Alkaline Phosphatase 82, Total Protein 6.2L, Albumin 2.4L, Vitamin B12 Level >2000H 11/30/22 23:15: Blood Gas Puncture Site RT RADIAL, Blood Gas Patient Temperature 37, Arterial Blood pH 7.39, Arterial Blood Partial Pressure CO2 46H, Arterial Blood Partial Pressure O2 56L, Arterial Blood HCO3 28H, Arterial Blood Total CO2 29.0, Arterial Blood Oxygen Saturation 89L, Arterial Blood Base Excess 3.1H, Delfino Test YES-POS, Blood Gas Ventilator Setting NO, Blood Gas Inspired Oxygen 4 12/01/22 05:00: White Blood Count 19.8H, Red Blood Count 3.03L, Hemoglobin 8.2L, Hematocrit 26L, Mean Corpuscular Volume 87, Mean Corpuscular Hemoglobin 27, Mean Corpuscular Hemoglobin Concent 31L, Red Cell Distribution Width 23.9H, Platelet Count 387, Mean Platelet Volume 10.2, Immature Granulocyte % (Auto) 9, Neutrophils (%) (Auto) 78H, Lymphocytes (%) (Auto) 7L, Monocytes (%) (Auto) 5, Eosinophils (%) (Auto) 0, Basophils (%) (Auto) 0, Neutrophils # (Auto) 15.5H, Lymphocytes # (Auto) 1.4, Monocytes # (Auto) 1.0, Eosinophils # (Auto) 0.1, Basophils # (Auto) 0.1, Immature Granulocyte # (Auto) 1.8H, Sodium Level 140, Potassium Level 3.7, Chloride Level 106, Carbon Dioxide Level 24, Anion Gap 10, Blood Urea Nitrogen 18, Creatinine 0.73, Estimat Glomerular Filtration Rate 83, BUN/Creatinine Ratio 25, Glucose Level 116H, Calcium Level 8.3L, Corrected Calcium 9.7, Total Bilirubin 0.5, Aspartate Amino Transf (AST/SGOT) 28, Alanine Aminotransferase (ALT/SGPT) 29, Alkaline Phosphatase 74, Total Protein 6.1L, Albumin 2.3L 12/01/22 10:43: Blood Gas Puncture Site R RADIAL, Blood Gas Patient Temperature 37.0, Arterial Blood pH 7.40, Arterial Blood Partial Pressure CO2 46H, Arterial Blood Partial Pressure O2 84, Arterial Blood HCO3 28H, Arterial Blood Total CO2 29.0, Arterial Blood Oxygen Saturation 98, Arterial Blood Base Excess 3.2H, Delfino Test YES-POS, Blood Gas Ventilator Setting NO, Blood Gas Inspired Oxygen 4 12/02/22 03:40: White Blood Count 17.3H, Red Blood Count 3.04L, Hemoglobin 8.0L, Hematocrit 27L, Mean Corpuscular Volume 87, Mean Corpuscular Hemoglobin 26, Mean Corpuscular Hemoglobin Concent 30L, Red Cell Distribution Width 23.9H, Platelet Count 359, Mean Platelet Volume 9.8, Immature Granulocyte % (Auto) 8, Neutrophils (%) (Auto) 78H, Lymphocytes (%) (Auto) 8L, Monocytes (%) (Auto) 5, Eosinophils (%) (Auto) 1, Basophils (%) (Auto) 0, Neutrophils # (Auto) 13.5H, Lymphocytes # (Auto) 1.4, Monocytes # (Auto) 0.8, Eosinophils # (Auto) 0.1, Basophils # (Auto) 0.1, Immature Granulocyte # (Auto) 1.4H, Sodium Level 142, Potassium Level 3.3L, Chloride Level 104, Carbon Dioxide Level 28, Anion Gap 10, Blood Urea Nitrogen 14, Creatinine 0.71, Estimat Glomerular Filtration Rate 86, BUN/Creatinine Ratio 20, Glucose Level 114H, Calcium Level 8.2L, Corrected Calcium 9.7, Phosphorus Level 3.4, Magnesium Level 1.5L, Total Bilirubin 0.4, Aspartate Amino Transf (AST/SGOT) 25, Alanine Aminotransferase (ALT/SGPT) 25, Alkaline Phosphatase 71, Total Protein 6.0L, Albumin 2.1L 12/02/22 06:10: Blood Gas Puncture Site r radial, Blood Gas Patient Temperature 37.0, Arterial Blood pH 7.38, Arterial Blood Partial Pressure CO2 54H, Arterial Blood Partial Pressure O2 75L, Arterial Blood HCO3 32H, Arterial Blood Total CO2 33.1H, Arterial Blood Oxygen Saturation 96, Arterial Blood Base Excess 6.5H, Delfino Test , Blood Gas Ventilator Setting NO, Blood Gas Inspired Oxygen 4 L 12/02/22 11:00: Vancomycin Level Trough 22.0H 12/02/22 21:45: Stool Occult Blood Immunoassay POSITIVEH 12/03/22 03:15: White Blood Count 15.4H, Red Blood Count 3.09L, Hemoglobin 8.2L, Hematocrit 27L, Mean Corpuscular Volume 87, Mean Corpuscular Hemoglobin 27, Mean Corpuscular He moglobin Concent 31L, Red Cell Distribution Width 23.9H, Platelet Count 343, Mean Platelet Volume 9.6, Immature Granulocyte % (Auto) 6, Neutrophils (%) (Auto) 79H, Lymphocytes (%) (Auto) 9L, Monocytes (%) (Auto) 5, Eosinophils (%) (Auto) 2, Basophils (%) (Auto) 0, Neutrophils # (Auto) 12.2H, Lymphocytes # (Auto) 1.3, Monocytes # (Auto) 0.7, Eosinophils # (Auto) 0.3, Basophils # (Auto) 0.0, Immature Granulocyte # (Auto) 1.0H, Sodium Level 141, Potassium Level 4.4, Chloride Level 102, Carbon Dioxide Level 28, Anion Gap 11, Blood Urea Nitrogen 11, Creatinine 0.71, Estimat Glomerular Filtration Rate 86, BUN/Creatinine Ratio 15, Glucose Level 116H, Calcium Level 8.1L, Corrected Calcium 9.4, Phosphorus Level 3.3, Magnesium Level 1.8, Total Bilirubin 0.3, Aspartate Amino Transf (AST/SGOT) 26, Alanine Aminotransferase (ALT/SGPT) 28, Alkaline Phosphatase 59, Total Protein 6.2L, Albumin 2.4L, Vancomycin Level Trough 13.6 12/03/22 04:05: Blood Gas Puncture Site RRAD, Blood Gas Patient Temperature 37.0, Arterial Blood pH 7.40, Arterial Blood Partial Pressure CO2 56H, Arterial Blood Partial Pressure O2 83, Arterial Blood HCO3 34H, Arterial Blood Total CO2 35.7H, Arterial Blood Oxygen Saturation 99, Arterial Blood Base Excess 9.1H, Delfino Test YES-POS, Blood Gas Ventilator Setting NO, Blood Gas Inspired Oxygen 3L 12/04/22 03:10: White Blood Count 14.0H, Red Blood Count 3.23L, Hemoglobin 8.5L, Hematocrit 28L, Mean Corpuscular Volume 88, Mean Corpuscular Hemoglobin 26, Mean Corpuscular Hemoglobin Concent 30L, Red Cell Distribution Width 24.0H, Platelet Count 367, Mean Platelet Volume 9.5, Immature Granulocyte % (Auto) 5, Neutrophils (%) (Auto) 79H, Lymphocytes (%) (Auto) 10L, Monocytes (%) (Auto) 5, Eosinophils (%) (Auto) 2, Basophils (%) (Auto) 0, Neutrophils # (Auto) 11.0H, Lymphocytes # (Auto) 1.4, Monocytes # (Auto) 0.7, Eosinophils # (Auto) 0.3, Basophils # (Auto) 0.0, Immature Granulocyte # (Auto) 0.6H, Sodium Level 141, Potassium Level 4.0, Chloride Level 101, Carbon Dioxide Level 30, Anion Gap 10, Blood Urea Nitrogen 9, Creatinine 0.75, Estimat Glomerular Filtration Rate 80, BUN/Creatinine Ratio 12, Glucose Level 106H, Calcium Level 8.4L, Corrected Calcium 9.7, Magnesium Level 1.7, Total Bilirubin 0.4, Aspartate Amino Transf (AST/SGOT) 38H, Alanine Aminotransferase (ALT/SGPT) 31, Alkaline Phosphatase 66, Total Protein 6.5, Al bumin 2.4L 12/05/22 06:38: White Blood Count 11.7H, Red Blood Count 3.33L, Hemoglobin 8.8L, Hematocrit 29L, Mean Corpuscular Volume 88, Mean Corpuscular Hemoglobin 26, Mean Corpuscular Hemoglobin Concent 30L, Red Cell Distribution Width 23.9H, Platelet Count 385, Mean Platelet Volume 9.2, Immature Granulocyte % (Auto) 2, Neutrophils (%) (Auto) 82H, Lymphocytes (%) (Auto) 8L, Monocytes (%) (Auto) 5, Eosinophils (%) (Auto) 2, Basophils (%) (Auto) 1, Neutrophils # (Auto) 9.6H, Lymphocytes # (Auto) 1.0, Monocytes # (Auto) 0.6, Eosinophils # (Auto) 0.2, Basophils # (Auto) 0.1, Immature Granulocyte # (Auto) 0.3H, Sodium Level 140, Potassium Level 3.8, Chloride Level 101, Carbon Dioxide Level 30, Anion Gap 9, Blood Urea Nitrogen 9, Creatinine 0.74, Estimat Glomerular Filtration Rate 82, BUN/Creatinine Ratio 12, Glucose Level 111H, Calcium Level 8.3L, Corrected Calcium 9.3, Magnesium Level 1.8, Total Bilirubin 0.3, Aspartate Amino Transf (AST/SGOT) 38H, Alanine Aminotransferase (ALT/SGPT) 30, Alkaline Phosphatase 68, Total Protein 6.5, Albumin 2.7L Pending Labs Laboratory Tests 11/30/22 22:07: White Blood Count 21.7, Red Blood Count 3.12, Hemoglobin 8.3, Hematocrit 27, Mean Corpuscular Volume 86, Mean Corpuscular Hemoglobin 27, Mean Corpuscular Hemoglobin Concent 31, Red Cell Distribution Width 23.8, Platelet Count 405, Mean Platelet Volume 10.1, Immature Granulocyte % (Auto) 9, Neutrophils (%) (Auto) 81, Lymphocytes (%) (Auto) 6, Monocytes (%) (Auto) 4, Eosinophils (%) (Auto) 0, Basophils (%) (Auto) 0, Neutrophils # (Auto) 17.6, Lymphocytes # (Auto) 1.2, Monocytes # (Auto) 0.9, Eosinophils # (Auto) 0.1, Basophils # (Auto) 0.1, Immature Granulocyte # (Auto) 1.9, Sodium Level 137, Potassium Level 3.7, C hloride Level 103, Carbon Dioxide Level 23, Anion Gap 11, Blood Urea Nitrogen 22, Creatinine 0.78, Estimat Glomerular Filtration Rate 77, BUN/Creatinine Ratio 28, Glucose Level 134, Lactic Acid Level 0.91, Calcium Level 8.0, Corrected Calcium 9.3, Iron Level 18, Total Bilirubin 0.4, Aspartate Amino Transf (AST/SGOT) 32, Alanine Aminotransferase (ALT/SGPT) 32, Alkaline Phosphatase 82, Total Protein 6.2, Albumin 2.4, Vitamin B12 Level >2000 11/30/22 23:15: Blood Gas Puncture Site RT RADIAL, Blood Gas Patient Temperature 37, Arterial Blood pH 7.39, Arterial Blood Partial Pressure CO2 46, Arterial Blood Partial Pressure O2 56, Arterial Blood HCO3 28, Arterial Blood Total CO2 29.0, Arterial Blood Oxygen Saturation 89, Arterial Blood Base Excess 3.1, Delfino Test YES-POS, Blood Gas Ventilator Setting NO, Blood Gas Inspired Oxygen 4 12/01/22 05:00: White Blood Count 19.8, Red Blood Count 3.03, Hemoglobin 8.2, Hematocrit 26, Mean Corpuscular Volume 87, Mean Corpuscular Hemoglobin 27, Mean Corpuscular Hemoglobin Concent 31, Red Cell Distribution Width 23.9, Platelet Count 387, Mean Platelet Volume 10.2, Immature Granulocyte % (Auto) 9, Neutrophils (%) (Auto) 78, Lymphocytes (%) (Auto) 7, Monocytes (%) (Auto) 5, Eosinophils (%) (A uto) 0, Basophils (%) (Auto) 0, Neutrophils # (Auto) 15.5, Lymphocytes # (Auto) 1.4, Monocytes # (Auto) 1.0, Eosinophils # (Auto) 0.1, Basophils # (Auto) 0.1, Immature Granulocyte # (Auto) 1.8, Sodium Level 140, Potassium Level 3.7, Chloride Level 106, Carbon Dioxide Level 24, Anion Gap 10, Blood Urea Nitrogen 18, Creatinine 0.73, Estimat Glomerular Filtration Rate 83, BUN/Creatinine Ratio 25, Glucose Level 116, Calcium Level 8.3, Corrected Calcium 9.7, Total Bilirubin 0.5, Aspartate Amino Transf (AST/SGOT) 28, Alanine Aminotransferase (ALT/SGPT) 29, Alkaline Phosphatase 74, Total Protein 6.1, Albumin 2.3 12/01/22 10:43: Blood Gas Puncture Site R RADIAL, Blood Gas Patient Temperature 37.0, Arterial Blood pH 7.40, Arterial Blood Partial Pressure CO2 46, Arterial Blood Partial Pressure O2 84, Arterial Blood HCO3 28, Arterial Blood Total CO2 29.0, Arterial Blood Oxygen Saturation 98, Arterial Blood Base Excess 3.2, Delifno Test YES-POS, Blood Gas Ventilator Setting NO, Blood Gas Inspired Oxygen 4 12/02/22 03:40: White Blood Count 17.3, Red Blood Count 3.04, Hemoglobin 8.0, Hematocrit 27, Mean Corpuscular Volume 87, Mean Corpuscular Hemoglobin 26, Mean Corpuscular Hemoglobin Concent 30, Red Cell Distribution Width 23.9, Platelet Count 359, Mean Platelet Volume 9.8, Immature Granulocyte % (Auto) 8, Neutrophils (%) (Auto) 78, Lymphocytes (%) (Auto) 8, Monocytes (%) (Auto) 5, Eosinophils (%) (Auto) 1, Basophils (%) (Auto) 0, Neutrophils # (Auto) 13.5, Lymphocytes # (Auto) 1.4, Monocytes # (Auto) 0.8, Eosinophils # (Auto) 0.1, Basophils # (Auto) 0.1, Immature Granulocyte # (Auto) 1.4, Sodium Level 142, Potassium Level 3.3, Chloride Level 104, Carbon Dioxide Level 28, Anion Gap 10, Blood Urea Nitrogen 14, Creatinine 0.71, Estimat Glomerular Filtration Rate 86, BUN/Creatinine Ratio 20, Glucose Level 114, Calcium Level 8.2, Corrected Calcium 9.7, Phosphorus Le дмитрий 3.4, Magnesium Level 1.5, Total Bilirubin 0.4, Aspartate Amino Transf (AST/SGOT) 25, Alanine Aminotransferase (ALT/SGPT) 25, Alkaline Phosphatase 71, Total Protein 6.0, Albumin 2.1 12/02/22 06:10: Blood Gas Puncture Site r radial, Blood Gas Patient Temperature 37.0, Arterial Blood pH 7.38, Arterial Blood Partial Pressure CO2 54, Arterial Blood Partial Pressure O2 75, Arterial Blood HCO3 32, Arterial Blood Total CO2 33.1, Arterial Blood Oxygen Saturation 96, Arterial Blood Base Excess 6.5, Delfino Test , Blood Gas Ventilator Setting NO, Blood Gas Inspired Oxygen 4 L 12/02/22 11:00: Vancomycin Level Trough 22.0 12/02/22 21:45: Stool Occult Blood Immunoassay POSITIVE 12/03/22 03:15: White Blood Count 15.4, Red Blood Count 3.09, Hemoglobin 8.2, Hematocrit 27, Mean Corpuscular Volume 87, Mean Corpuscular Hemoglobin 27, Mean Corpuscular Hemoglobin Concent 31, Red Cell Distribution Width 23.9, Platelet Count 343, Mean Platelet Volume 9.6, Immature Granulocyte % (Auto) 6, Neutrophils (%) (Auto) 79, Lymphocytes (%) (Auto) 9, Monocytes (%) (Auto) 5, Eosinophils (%) (Auto) 2, Basophils (%) (Auto) 0, Neutrophils # (Auto) 12.2, Lymphocytes # (Auto) 1.3, Monocytes # (Auto) 0.7, Eosinophils # (Auto) 0.3, Basophils # (Auto) 0.0, Immature Granulocyte # (Auto) 1.0, Sodium Level 141, Potassium Level 4.4, Chloride Level 102, Carbon Dioxide Level 28, Anion Gap 11, Blood Urea Nitrogen 11, Creatinine 0.71, Estimat Glomerular Filtration Rate 86, BUN/Creatinine Ratio 15, Glucose Level 116, Calcium Level 8.1, Corrected Calcium 9.4, Phosphorus Level 3.3, Magnesium Level 1.8, Total Bilirubin 0.3, Aspartate Amino Transf (AST/SGOT) 26, Alanine Aminotransferase (ALT/SGPT) 28, Alkaline Phosphatase 59, Total Protein 6.2, Albumin 2.4, Vancomycin Level Trough 13.6 12/03/22 04:05: Blood Gas Puncture Site RRAD, Blood Gas Patient Temperature 37.0, Arterial Blood pH 7.40, Arterial Blood Partial Pressure CO2 56, Arterial Blood Partial Pressure O2 83, Arterial Blood HCO3 34, Arterial Blood Total CO2 35.7, Arterial Blood Oxygen Saturation 99, Arterial Blood Base Excess 9.1, Delfino Test YES-POS, Blood Gas Ventilator Setting NO, Blood Gas Inspired Oxygen 3L 12/04/22 03:10: White Blood Count 14.0, Red Blood Count 3.23, Hemoglobin 8.5, Hematocrit 28, Mean Corpuscular Volume 88, Mean Corpuscular Hemoglobin 26, Mean Corpuscular Hemoglobin Concent 30, Red Cell Distribution Width 24.0, Platelet Count 367, Mean Platelet Volume 9.5, Immature Granulocyte % (Auto) 5, Neutrophils (%) (Auto) 79, Lymphocytes (%) (Auto) 10, Monocytes (%) (Auto) 5, Eosinophils (%) (Auto) 2, Basophils (%) (Auto) 0, Neutrophils # (Auto) 11.0, Lymphocytes # (Auto) 1.4, Monocytes # (Auto) 0.7, Eosinophils # (Auto) 0.3, Basophils # (Auto) 0.0, Immature Granulocyte # (Auto) 0.6, Sodium Level 141, Potassium Level 4.0, Chloride Level 101, Carbon Dioxide Level 30, Anion Gap 10, Blood Urea Nitrogen 9, Creatinine 0.75, Estimat Glomerular Filtration Rate 80, BUN/Creatinine Ratio 12, Glucose Level 106, Calcium Level 8.4, Corrected Calcium 9.7, Magnesium Level 1.7, Total Bilirubin 0.4, Aspartate Amino Transf (AST/SGOT) 38, Alanine Aminotransferase (ALT/SGPT) 31, Alkaline Phosphatase 66, Total Protein 6.5, Albumin 2.4 12/05/22 06:38: White Blood Count 11.7, Red Blood Count 3.33, Hemoglobin 8.8, Hematocrit 29, Mean Corpuscular Volume 88, Mean Corpuscular Hemoglobin 26, Mean Corpuscular Hemoglobin Concent 30, Red Cell Distribution Width 23.9, Platelet Count 385, Mean Platelet Volume 9.2, Immature Granulocyte % (Auto) 2, Neutrophils (%) (Auto) 82, Lymphocytes (%) (Auto) 8, Monocytes (%) (Auto) 5, Eosinophils (%) (Auto) 2, Basophils (%) (Auto) 1, Neutrophils # (Auto) 9.6, Lymphocytes # (Auto) 1.0, Monocytes # (Auto) 0.6, Eosinophils # (Auto) 0.2, Basophils # (Auto) 0.1, Immature Granulocyte # (Auto) 0.3, Sodium Level 140, Potassium Level 3.8, Chloride Level 101, Carbon Dioxide Level 30, Anion Gap 9, Blood Urea Nitrogen 9, Creatinine 0.74, Estimat Glomerular Filtration Rate 82, BUN/Creatinine Ratio 12, Glucose Level 111, Calcium Level 8.3, Corrected Calcium 9.3, Magnesium Level 1.8, Total Bilirubin 0.3, Aspartate Amino Transf (AST/SGOT) 38, Alanine Aminotransferase (ALT/SGPT) 30, Alkaline Phosphatase 68, Total Protein 6.5, Albumin 2.7 Discharge Home Medications: Active Scripts Active Hydrocortisone 1 % Cream..g. 0 Gm TOP BID 7 Days bid Acidophilus-Pectin Capsule (Lactobacillus Acidophilus/Pect) 75 Million Cell-100 Mg Capsule 2 Each PO TIDWM 7 Days Pantoprazole Sodium 40 Mg Tablet.dr 40 Mg PO BID 30 Days Sucralfate 1 Gram Tablet 1 Gm PO ACHS 30 Days Furosemide 20 Mg Tablet 20 Mg PO DAILY 30 Days Klor-Con 10 (Potassium Chloride) 10 Meq Tablet.er 10 Meq PO DAILY@0700 7 Days Losartan Potassium 50 Mg Tablet 50 Mg PO DAILY 30 Days Diltiazem 24Hr ER (Diltiazem HCl) 240 Mg Cap.er.24h 240 Mg PO DAILY 30 Days Albuterol Sulfate 2.5 Mg/3 Ml (0.083 %) Vial.neb 2.5 Mg INH RTQ4HR PRN 7 Days Metoprolol Succinate 50 Mg Tab.er.24h 50 Mg PO BID 30 Days Venofer (Iron Sucrose Complex) 200 Mg Iron/10 Ml Vial 200 Mg IV Q48H@09 3 Days Albuterol Sulfate 2.5 Mg/3 Ml (0.083 %) Vial.neb 2.5 Mg INH RTBID 7 Days Reported Vitamin B-12 (Cyanocobalamin (Vitamin B-12)) 500 Mcg Tablet 500 Mcg PO DAILY Fish Oil 1,200 mg Fish Oil (Fish Oil/Dha/Epa) 1,200 Mg-144 Mg-216 Mg Capsule 1 Each PO DAILY Calcium + Vitamin D Tablet (Calcium Carbonate/Vitamin D3) 600 Mg Calcium-5 Mcg (200 Unit) Tablet 1 Each PO DAILY Folic Acid 1 Mg Tablet 1 Mg PO DAILY Neurontin (Gabapentin) 300 Mg Capsule 300 Mg PO HS Amlodipine Besylate 5 Mg Tablet 5 Mg PO DAILY Tramadol HCl 50 Mg Tablet 50-100 Mg PO Q6H PRN TAKES 1 TO 2 (50MG) TABS Instructions to patient/family Please see electronic discharge instructions given to patient. Clinical Quality Measures DVT/VTE Risk/Contraindication: Contraindications-Pharm: Other *list below* Other: watermelon stomach with GIB CHRISTINE ANGEL DO Dec 05, 2022 12:11
--- NOTE | 2022-12-05 14:45 | Physical Therapy Daily Note ---
PT Daily Note-Current Subjective Pt is in the bedside chair, with her seated in the chair next to her. Pt is agreeable to treatment. Pain Section J - Health Conditions 1. Rarely or not at all 2. Occasionally 3. Frequently 4. Almost constantly 8. Unable to answer Pain Effect on Sleep: 1 Pain Interference with Therapy: 1 Pain Interference w/Day-to-Day: 1 Mental Status Patient Orientation: Person, Place, Time, Situation Attachments: Oxygen Transfers SCALE: Activities may be completed with or without assistive devices. 9-Ppousogskn-pupbdfo completes the activity by him/herself with no assistance from a helper. 5-Set-up or Clean-up Assistance-helper sets up or cleans up; patient completes activity. [place] assists only prior to or following the activity. 4-Supervision or Touching Assistance-helper provides verbal cues and/or touching/steadying and/or contact guard assistance as patient completes activity. Assistance may be provided throughout the activity or intermittently. 3-Partial/Moderate Assistance-helper does LESS THAN HALF the effort. [place] lifts, holds or supports trunk or limbs, but provides less than half the effort. 2-Substantial/Maximal Assistance-helper does MORE THAN HALF the effort. [place] lifts or holds trunk or limbs and provides more than half the effort. 5-Vqvzypudc-uombym does ALL the effort. Patient does none of the effort to complete the activity. Or, the assistance of 2 or more helpers is required for the patient to complete the activity. If activity was not attempted, code reason: 7-Patient Refused. 9-Not Applicable-not attempted and the patient did not perform the activity before the current illness, exacerbation or injury. 10-Not Attempted due to Environmental Limitations-(lack of equipment, weather restraints, etc.). 88-Not Attempted due to Medical Conditions or Safety Concerns. Sit to Stand (QC): 5 Chair/Xsh-io-Rioax Xfer(QC): 5 Weight Bearing Right Lower Extremity: Right Full Weight Bearing Left Lower Extremity: Left Full Weight Bearing Gait Training Does the Patient Walk?: Yes Distance: 120ft Walk 10 feet (QC): 5 Walk 50 ft with 2 Turns(QC): 5 Gait Persons Needed: 1 Gait Assistive Device: FWW Pt ambulates with a flexed posture. Wheelchair Training Does the Pt Use a Wheelchair?: No Exercises Seated Therapy Exercises: LE Protocol Seated Reps: 20 Reviewed the seated and supine exercises for pt to perform (I). Pt had noted (L) lower extremity edema, so appropriate exercises were demonstrated. Assessment Current Status: Good Progress Pt was able to perform sit to stand with only setup assistance. She returned to the chair after ambulation and was able to perform additional exercises. PT Assisted Goals Case Supervisor Goals PT Assisted Goals Time Frame: Jan 01, 2023 Roll Left & Right (QC): 6 Sit to Lying (QC): 6 Lying-Sitting on Side/Bed(QC): 6 Sit to Stand (QC): 6 Chair/Ieo-qe-Ovdav Xfer(QC): 6 Toilet Transfer (QC): 6 Does the Patient Walk: Yes Walk 10 feet (QC): 6 Walk 50ft with 2 Turns (QC): 6 Walk 150 ft (QC): 6 1 Step (curb) (QC): 4 4 Steps (QC): 4 PT Plan Treatment/Plan Treatment Plan: Continue Plan of Care Treatment Plan: Bed Mobility, Education, Functional Activity Sarita, Functional Strength, Group Therapy, Gait, Safety, Therapeutic Exercise, Transfers Treatment Duration: Jan 01, 2023 Frequency: 6 times per week Estimated Hrs Per Day: .25 hour per day Patient and/or Family Agrees t: Yes Time Time In: 1050 Time Out: 1104 DATE: Dec 05, 2022 Total Billed Treatment Time: 14 Total Billed Treatment 1, gt 14 OTIS BECK PT Dec 05, 2022 14:45
[2022-12-05 15:23] VITALS: BP 146/66
== END 2022-12-05 14:30 | DRG 871 ==
LOC: CSD 21:19 → ICU 12-01 10:19 → CSD 12-03 14:30 → 4TH 12-04 15:06
PROVIDERS: ADMIT Internal Medicine; ATTEND Internal Medicine
DX: A41.9 Sepsis, unspecified organism (principal); I50.31 Acute diastolic (congestive) heart failure; J18.9 Pneumonia, unspecified organism; J96.01 Acute respiratory failure with hypoxia; K31.811 Angiodysplasia of stomach and duodenum with bleeding; E46 Unspecified protein-calorie malnutrition; J90 Pleural effusion, not elsewhere classified; E87.4 Mixed disorder of acid-base balance; E87.29 Other acidosis; D50.9 Iron deficiency anemia, unspecified; M34.9 Systemic sclerosis, unspecified; I27.20 Pulmonary hypertension, unspecified; E78.5 Hyperlipidemia, unspecified; I11.0 Hypertensive heart disease with heart failure; I48.0 Paroxysmal atrial fibrillation; Z68.28 Body mass index [BMI] 28.0-28.9, adult
CPT/HCPCS: 36415; 36600; 71045; 71275; 80053; 80202; 82274; 82607; 82805; 83540; 83605; 83735; 84100; 85025; 93005; 93306; 94640; 94664; 94760

== ENCOUNTER → 2022-11-30 | Outpatient (CLI) ==
[~2022-11-30] MED LIST: AMLO-250 PO; CALC-140 PO; CYAN500T8 PO; FISH1CAP15 PO; FOLI1TAB33 PO; GABA300C PO; METO50TA7 PO; PANT40TA52 PO; SUCR1TAB PO; TRAM50TA3 PO
[2022-11-30 13:50] LABS: ABSOLUTE RETIC # 103 10e9/uL (24-90); BASOPHILS # (AUTO) 0.2 10^3/uL (0.0-0.1); BASOPHILS % (AUTO) 1 % (0-10); EOSINOPHILS % (AUTO) 0 % (0-10); HEMATOCRIT 32 % (35-52); HEMOGLOBIN 9.4 g/dL (11.5-16.0); LYMPHOCYTES # (AUTO) 1.1 10^3/uL (1.0-4.0); LYMPHOCYTES % (AUTO) 4 % (12-44); MEAN CORPUSCULAR HEMOGLOBIN 26 pg (25-34); MEAN CORPUSCULAR HGB CONC 30 g/dL (32-36); MEAN CORPUSCULAR VOLUME 88 fL (80-99); MEAN PLATELET VOLUME 10.2 fL (9.0-12.2); MONOCYTES % (AUTO) 4 % (0-12); NEUTROPHILS # (AUTO) 22.2 10^3/uL (1.8-7.8); NEUTROPHILS % (AUTO) 84 % (42-75); PLATELET COUNT 448 10^3/uL (130-400); RETICULOCYTE % 2.87 % (0.50-2.40); WHITE BLOOD COUNT 26.5 10^3/uL (4.3-11.0)
[2022-11-30 14:34] LABS: ANISOCYTOSIS SLIGHT; ATYPICAL LYMPHOCYTES 1 %; LYMPHOCYTES % (MANUAL) 4 %; METAMYELOCYTES % 1 %; MONOCYTES % (MANUAL) 4 %; MYELOCYTES % 1 %; NEUTROPHILS % (MANUAL) 85 %; REACTIVE LYMPHOCYTES 4 %
[2022-11-30 14:35] LABS: HYPOCHROMASIA SLIGHT; SCHISTOCYTES SLIGHT
== END ==
LOC: LABNPT 13:28
PROVIDERS: ATTEND Family Medicine
DX: A41.9 Sepsis, unspecified organism (principal); R65.10 Systemic inflammatory response syndrome (SIRS) of non-infectious origin without acute organ dysfunction
CPT/HCPCS: 85007; 85027; 85045; 85055